=== PATIENT | female | born 1940 | race Caucasian/White ===

== ENCOUNTER → 2021-11-20 10:04 | Outpatient (CLI) | payer MEDICARE, SELFPAY ==
[2021-11-20 19:01] LABS: UR Morphine/Opiate cutoff 300 Negative (Negative); Ur Creatinine Normal (Normal); Ur Specific Gravity Normal (Normal); Urine Amphetamines Negative (Negative); Urine Barbiturates Negative (Negative); Urine Benzodiazepines Negative (Negative); Urine Cocaine Negative (Negative); Urine MDMA Negative (Negative); Urine Methadone Negative (Negative); Urine Methamphetamines Negative (Negative); Urine Oxycodone Negative (Negative); Urine Phencyclidine Negative (Negative); Urine Tetrahydrocannabinol Negative (Negative); Urine Tricyclic Antidepressant Positive (Negative); Urine pH Normal (Normal)
[2021-11-23 12:57] LABS: Ethyl Glucuronide Screen Negative ng/mL (Cutoff=500)
== END ==
PROVIDERS: PCP Physician Assistant Medical; Visit Provider Physician Assistant Medical
DX: G89.4 Chronic pain syndrome (principal); Z79.891 Long term (current) use of opiate analgesic
CPT/HCPCS: 80305; 80321

== ENCOUNTER → 2022-04-28 12:00 | Outpatient (CLI) | payer MEDICARE, SELFPAY ==
[2022-04-28 20:20] LABS: Vitamin B12 > 1000 pg/mL (239-931)
[2022-04-29 17:16] LABS: Vitamin D 25 Hydroxy (D3) 37.6 ng/mL (30.0-100.0)
== END ==
PROVIDERS: PCP Family Medicine; Visit Provider Family Medicine
DX: Z79.891 Long term (current) use of opiate analgesic (principal); E78.2 Mixed hyperlipidemia; F02.80 Dementia in other diseases classified elsewhere, unspecified severity, without behavioral disturbance, psychotic disturbance, mood disturbance, and anxiety; G30.9 Alzheimer's disease, unspecified; G89.29 Other chronic pain; M54.50 Low back pain, unspecified
CPT/HCPCS: 82306; 82607

== ENCOUNTER 2022-05-21 15:44 | Inpatient (IN) | payer MEDICARE, SELFPAY ==
[2022-05-21] VITALS (23 sets, daily range): BP systolic 149–190; BP diastolic 66–98; PULSE 81–149; RESP 12–20; TEMP 36.8; O2SAT 97–99
--- NOTE | 2022-05-21 15:54 | DI.RAD.S_ITS ---
PROCEDURE: XR CHEST 1V INDICATIONS: chest pain TECHNIQUE: One view of the chest was acquired. COMPARISON: None. FINDINGS: Surgical changes and devices: None. Lungs and pleura: Patchy opacities noted in the apex of the left lung. No pleural effusions or pneumothorax. Mediastinum: Mediastinal contours appear normal. Heart size is normal. Bones and chest wall: No suspicious bony lesions. Overlying soft tissues appear unremarkable. IMPRESSION: Patchy opacities in the apex of the left lung which could represent pneumonia or pleural-parenchymal scarring. Dictated by: Dary Carrasco MD, PhD on 05/21/2022 at 17:07 Approved by: Dary Carrasco MD, PhD on 05/21/2022 at 17:08
--- NOTE | 2022-05-21 15:55 | DI.RAD.S_ITS ---
PROCEDURE: XR KNEE LT 1TO2V INDICATIONS: fall TECHNIQUE: 2 views of the knee were acquired. COMPARISON: None. FINDINGS: Bones: No fractures or dislocations. No suspicious bony lesions. Mild to moderate tricompartment osteoarthritis. Soft tissues: No joint effusion. No suspicious soft tissue calcifications. IMPRESSION: No fracture. No acute osseous lesion. If symptoms and/or clinical suspicion for pathology persists, further assessment with repeat radiographs (7-10 days) or advanced imaging (e.g. CT, MRI or bone scan) should be considered. Dictated by: Dary Carrasco MD, PhD on 05/21/2022 at 17:05 Approved by: Dary Carrasco MD, PhD on 05/21/2022 at 17:05
--- NOTE | 2022-05-21 15:55 | DI.RAD.S_ITS ---
PROCEDURE: XR HIP W PEL IF DONE LT 2V INDICATIONS: fall TECHNIQUE: AP pelvis with lateral view(s) of the left hip(s). COMPARISON: None. FINDINGS: Bones: No fractures or dislocations. Pelvic ring appears intact. No suspicious bony lesions. Soft tissues: The visualized bowel gas pattern is normal. No suspicious soft tissue calcifications. IMPRESSION: No fracture. No acute osseous lesion. If symptoms and/or clinical suspicion for pathology persists, further assessment with repeat radiographs (7-10 days) or advanced imaging (e.g. CT, MRI or bone scan) should be considered. Dictated by: Dary Carrasco MD, PhD on 05/21/2022 at 17:06 Approved by: Dary Carrasco MD, PhD on 05/21/2022 at 17:07
[2022-05-21 16:25] LABS: Add Manual Diff / Slide Review NO; Basophils Absolute Auto 0 /uL (0-100); Basophils Percent Auto 0.1 % (0-2); Eosinophils Absolute Auto 0 /uL (0-450); Hematocrit 36.5 % (36-46); Lymphocytes Absolute Auto 1100 /uL (1100-4500); Lymphocytes Percent Auto 4.6 % (25-40); Mean Corpuscular HGB Conc 32.9 % (30-36); Mean Corpuscular Hemoglobin 30.9 PG (26-34); Monocytes Absolute Auto 1200 /uL (0-900); Monocytes Percent Auto 4.9 % (3-14); Neutrophils Absolute Auto 21800 /uL (1500-7000); Neutrophils Percent Auto 90.4 % (50-75); Platelet Count 488 X10^3/uL (150-400); Red Blood Cell Count 3.88 X10^6/uL (4.0-5.2); Red Cell Distribution Width 15.4 % (11.6-14.8); White Blood Cell Count 24.2 X10^3/uL (4.5-11.0)
--- NOTE | 2022-05-21 16:38 | DI.CT.S_ITS ---
PROCEDURE: CT CHEST ABD PEL W CON INDICATIONS: IV contrast only/Abdominal pain/weight loss TECHNIQUE: After the administration of oral and intravenous contrast, axial sections acquired from the supraclavicular neck to the pubic symphysis. Coronal and sagittal reformats were performed. For radiation dose reduction, the following was used: automated exposure control, adjustment of mA and/or kV according to patient size. COMPARISON:[facility], CR, XR HIP W PEL IF DONE LT 2V, 05/21/2022, 15:58. [facility], CR, XR KNEE LT 1TO2V, 05/21/2022, 15:58. [facility], CR, XR CHEST 1V, 05/21/2022, 15:58. [facility] ([place]), CR, XR LUMBAR SPINE 2-3V, 02/14/2022, 9:08. [facility], CT, CT HEAD/BRAIN WO CON, 05/21/2022, 17:10. [facility], CT, CT CERVICAL SPINE WO CON, 05/21/2022, 17:10. FINDINGS: Image quality: This evaluation is limited, secondary to the patient's inability to fully cooperate with the examination. CHEST: Lower Neck: No enlarged lymph nodes. Thyroid: Within normal limits. Axillae: No enlarged lymph nodes. Chest Wall: Unremarkable. Lungs and Airways: Emphysematous changes are seen, which are worst superiorly. Subpleural bleb formation can be seen. Pleura: No pneumothorax or pleural effusions. Heart: Heart size is normal. No pericardial effusion. There is at least moderate coronary artery calcification. Thoracic Vessels: The aorta and pulmonary arteries demonstrate normal size. Atherosclerotic calcification is noted. Mediastinum and Lauryn: No enlarged lymph nodes. Esophagus: There is wall thickening seen involving the distal esophagus. A likely hiatal hernia is present. ABDOMEN: Liver: Unremarkable. Gallbladder: Unremarkable. Biliary ducts: Unremarkable. Pancreas: The pancreas is atrophic. No pancreatic ductal dilatation is seen. Spleen: Unremarkable. Adrenal Glands: Generalized thickening can be seen of the adrenal glands, yet without focal adrenal nodules. Kidneys and Ureters: Unremarkable. Stomach and Bowel: Generalized moderate wall thickening can be seen involving the distal colon, including the sigmoid colon and the rectum. The more proximal colon demonstrates no significant abnormality. No dilated loops of small bowel are seen. No significant gastric abnormality is seen. Peritoneum: No abnormal intraperitoneal fluid. No free air. Ventral Wall: No hernia. Abdominal Nodes: No retroperitoneal or mesenteric adenopathy by size criteria. Vessels: Aorta and inferior vena cava are normal in size. Atherosclerotic calcification is noted. PELVIS: Pelvic Organs: Unremarkable. Bladder: Unremarkable. Pelvic Nodes: No enlarged lymph nodes. Miscellaneous: No inguinal hernias are seen. Bones: A T12 fracture is again seen, with a subacute appearance. There is posterior displacement of fracture fragments of 7 mm. Grade 1 L4-L5 anterolisthesis can be seen, without associated pars defects. IMPRESSION: Wall thickening is seen involving the distal esophagus. Please consider reflux disease versus neoplasm. If clinically appropriate, please consider upper endoscopy for further evaluation. Moderate distal colonic wall thickening can be seen. Please correlate with potential infectious and inflammatory causes of colitis. No findings of perforation or abscess can be seen. Emphysematous changes are seen. A T12 fracture is again seen, as previously demonstrated by plain film. Posterior displacement of free Becher fragments can be seen. Incidental note is made of: At least moderate coronary artery calcification Grade 1 L4-5 anterolisthesis Dictated by: Ivan Unger M.D. on 05/21/2022 at 18:01 Approved by: Ivan Unger M.D. on 05/21/2022 at 18:07
--- NOTE | 2022-05-21 16:40 | ED_ITS ---
HPI - Fall <Nael Arreola MD - Last Filed: 05/27/22 06:14> General Chief Complaint: Fall Stated Complaint: Not eating, fatigued, fall Time Seen by Provider: 05/21/22 16:02 Source: patient and family Mode of arrival: Wheelchair History of Present Illness HPI Narrative: Patient brought here by daughter. Patient was at primary care office for 1st visit today. Has had generalized weakness failure to thrive, decreased oral intake no appetite. 30 lb weight loss since December of this year. Patient is on pain medication for chronic pain. From previous provider, had a new provider visit to day. Please see notes below. Patient had unwitnessed falls. She denies any pain at this time from head to toe. Patient is cooperative. She only shakes her head yes and no to questions. Daughter at bedside. Patient l philip with another daughter. No nausea vomiting diarrhea. Denies any black or bloody stools. Has had decreased urine output. HPI Chief Complaint Chief Complaint: lack of appetite HPI Details: Patient, new to me, hx alzheimer's, chronic back pain w/ mcc opioid use, irritable bladder, lower extremity weakness, multiple falls here for same day consult w/ daughter and son reporting two days with worsening weakness, fatigue, anorexia and nausea. They also think she may have fallen twice last night getting up to go to the bathroom and may have hit her head. ? She has not eaten for two days, symptoms started before the fall. She has not had any vomiting, diarrhea or urinary complaints. She has been on mcc opioid therapy for lifelong chronic pain and has recently been tapered slightly with trial lyrica. They do not want to be flown off [place] as they do not have air lift insurance. She appears to have 30 lb weight loss since December. Plan Weak and ill appearing With 30 lb weight loss since December there is concern for malignancy, recent labs did not include pending orders and per lab she was due for fasting draw f/u soon at which time previously ordered labs were to be drawn Given lack of food intake x 48 hrs and appearance of patient, I advised need to call for EMS/air lift transport/ IV hydration but patient and family declined d/t lack of insurance Daughter requested ferry priority load which was provided After patient left, I confirmed she could qualify for airlift insurance immediately. Daughter was informed 5 minutes after leaving that they should head to [facility], request IV and transport and she agreed to do so.. Related Data Previous Rx's Medication Instructions Recorded donepezil 5 mg tablet (Aricept) 5 mg PO DAILY #30 tabs 05/23/22 lidocaine 5 % topical patch 1 patch topical Q24H #15 ea 05/23/22 lidocaine 5 % topical patch See Rx Instructions .Route 05/23/22 .COMPLEX #15 patches lorazepam 0.5 mg tablet 0.5 mg PO Q4HR PRN anxiety #30 tabs 05/23/22 oxycodone-acetaminophen 10 mg-325 1 tab PO Q4HR PRN Pain, Moderate 05/23/22 mg tablet (4-6) #60 tabs oxycodone-acetaminophen 10 mg-325 See Rx Instructions .Route 05/23/22 mg tablet .COMPLEX pain #30 tabs pregabalin 25 mg capsule (Lyrica) 25 mg PO BEDTIME #30 caps 05/23/22 pregabalin 25 mg capsule (Lyrica) 25 mg PO BEDTIME #30 caps 05/23/22 Allergies Allergy/AdvReac Type Severity Reaction Status Date / Time No Known Drug Allergies Allergy Verified 05/21/22 12:59 Review of Systems <Nael Arreola MD - Last Filed: 05/27/22 06:14> Review of Systems Narrative: GENERAL: Denies chills, positive for fatigue, malaise, negative for fever, sweats. Positive for unexpected weight loss HEENT: Denies sinus pain, ear pain, sore throat RESPIRATORY: Denies dyspnea, cough CARDIOVASCULAR: Denies chest pain, palpitations GASTROINTESTINAL: Denies nausea, vomiting, abdominal pain : Denies dysuria, frequency, hematuria MUSCULOSKELETAL: denies muscle or bony pain SKIN: Denies rash, skin lesions NEUROLOGIC: Denies weakness, numbness ROS Unobtainable: All systems reviewed & are unremarkable except as noted in HPI and below Patient History <Nael Arreola MD - Last Filed: 05/27/22 06:14> Medical History Alzheimer's dementia Chronic low back pain Hyperlipidemia Irritable bladder extermination supervisor prescription opiate use Social History household members: family Smoking Status: Former smoker alcohol intake: current Smoking Status: Former smoker Exam <Nael Arreola MD - Last Filed: 05/27/22 06:14> Narrative Exam Narrative: GENERAL: in no distress, not toxic not dyspneic, emaciated appearing HEAD: Normocephalic. Nontender scalp and face. EYES: Pupils equal round No scleral icterus. ENT: Mucous membranes moist. NECK: Trachea midline. No midline tenderness or step-off. CARDIOVASCULAR: Regular rate and rhythm without murmurs, tachycardic RESPIRATORY: Clear to auscultation. Breath sounds equal bilaterally. No wheezes, rales, or rhonchi. GASTROINTESTINAL: Abdomen soft, non-tender EXTREMITIES: No gross deformities. Nontender bilateral shoulders elbows wrists pelvis hips knees and ankles. BACK: No flank tenderness. No midline tenderness or step-off. NEURO: Patient awake and alert. Following commands. SKIN: Warm and dry PSYCH: Not anxious, is cooperative Initial Vital Signs Initial Vital Signs: Vital Signs Temperature 98.3 F 05/21/22 15:48 Pulse Rate 119 H 05/21/22 15:48 Respiratory Rate 20 05/21/22 15:48 Blood Pressure 160/66 H 05/21/22 15:48 Pulse Oximetry 99 05/21/22 15:48 Oxygen Delivery Method 05/21/22 15:48 <Ney Gibbs DO - Last Filed: 05/22/22 06:02> Initial Vital Signs Initial Vital Signs: Vital Signs Temperature 98.3 F 05/21/22 15:48 Pulse Rate 119 H 05/21/22 15:48 Respiratory Rate 20 05/21/22 15:48 Blood Pressure 160/66 H 05/21/22 15:48 Pulse Oximetry 99 05/21/22 15:48 Oxygen Delivery Method 05/21/22 15:48 Course <Nael Arreola MD - Last Filed: 05/27/22 06:14> Course Course Narrative: No new issues during course of stay Sign-out to Dr. Gibbs patient will need to be admitted for failure to thrive. Troponin likely due to tachycardia/cardiac demand. Patient denies any any chest pain or back pain or abdominal pain. Imaging results are pending. White cell count nonspecific other than possible neoplastic or infectious. Urinalysis and imaging are pending results Decision to Admit Date: 05/21/22 Decision to Admit time: 16:47 Orders Ordered: Discontinued Medications Acetaminophen (Acetaminophen 325 Mg Tablet) 650 mg PO Q6HR PRN PRN Reason: Fever/Mild Pain (1-3) Aspirin (Aspirin Ec 325 Mg Tablet) 325 mg PO DAILY [facility] Last Admin: 05/23/22 09:43 Dose: 325 mg Documented By: Admin: 05/22/22 09:06 Dose: 325 mg Documented By: DEREK Atorvastatin Calcium (Atorvastatin 20 Mg Tablet) 10 mg PO DAILY [facility] Last Admin: 05/23/22 09:42 Dose: 10 mg Documented By: Admin: 05/22/22 09:05 Dose: 10 mg Documented By: DEREK Docusate Sodium (Docusate 100 Mg Capsule) 100 mg PO BID [facility] Last Admin: 05/23/22 09:42 Dose: 100 mg Documented By: Admin: 05/22/22 20:12 Dose: 100 mg Documented By: Admin: 05/22/22 09:06 Dose: 100 mg Documented By: Admin: 05/21/22 22:33 Dose: 100 mg Documented By: SONIA Donepezil HCl (Donepezil 5 Mg Tablet) 5 mg PO DAILY [facility] Last Admin: 05/23/22 09:41 Dose: 5 mg Documented By: Admin: 05/22/22 09:13 Dose: 5 mg Documented By: DEREK Enoxaparin Sodium (Enoxaparin 30 Mg/0.3 Ml Syringe) 30 mg SUBCUT DAILY [facility] Last Admin: 05/23/22 09:43 Dose: 30 mg Documented By: Admin: 05/22/22 09:06 Dose: 30 mg Documented By: DEREK Sodium Chloride (Normal Saline 0.9%) 1,000 mls @ 1,000 mls/hr IV BOLUS ONE Stop: 05/21/22 17:37 Last Infusion: 05/21/22 19:59 Dose: 0 mls/hr Documented By: Admin: 05/21/22 16:46 Dose: 1,000 mls/hr Documented By: TREVOR Sodium Chloride (Normal Saline 0.9%) 1,000 mls @ 1,000 mls/hr IV BOLUS ONE Stop: 05/21/22 18:51 Last Infusion: 05/21/22 23:35 Dose: 0 mls/hr Documented By: Admin: 05/21/22 20:17 Dose: 1,000 mls/hr Documented By: TREVOR Sodium Chloride (Normal Saline 0.9%) 1,000 mls @ 100 mls/hr IV CONT [facility] Last Infusion: 05/23/22 00:37 Dose: 0 mls/hr Documented By: Admin: 05/22/22 16:04 Dose: 100 mls/hr Documented By: Infusion: 05/22/22 07:58 Dose: 100 mls/hr Documented By: Admin: 05/21/22 21:58 Dose: 100 mls/hr Documented By: NR POTASSIUM CHLORIDE IN WATER (Potassium Cl 10 Meq/100 Ml Do) 10 meq in 100 mls @ 100 mls/hr IV Q1H [facility] Stop: 05/22/22 02:44 Last Infusion: 05/22/22 05:41 Dose: 0 mls/hr Documented By: Admin: 05/22/22 04:34 Dose: 100 mls/hr Documented By: Infusion: 05/22/22 04:23 Dose: 0 mls/hr Documented By: Admin: 05/22/22 03:13 Dose: 100 mls/hr Documented By: Infusion: 05/22/22 02:52 Dose: 100 mls/hr Documented By: Admin: 05/22/22 01:52 Dose: 100 mls/hr Documented By: Infusion: 05/22/22 01:40 Dose: 100 mls/hr Documented By: Admin: 05/22/22 00:40 Dose: 100 mls/hr Documented By: Infusion: 05/22/22 00:34 Dose: 100 mls/hr Documented By: Admin: 05/21/22 23:34 Dose: 100 mls/hr Documented By: Infusion: 05/21/22 23:01 Dose: 100 mls/hr Documented By: Admin: 05/21/22 22:01 Dose: 100 mls/hr Documented By: SONIA POTASSIUM CHLORIDE IN WATER (Potassium Cl 10 Meq/100 Ml Do) 10 meq in 100 mls @ 100 mls/hr IV Q1H [facility] Stop: 05/22/22 05:29 Last Admin: 05/22/22 05:25 Dose: Not Given Documented By: POLO Ceftriaxone Sodium 1,000 mg/ (Sodium Chloride) 100 mls @ 200 mls/hr IV Q24H [facility] Stop: 05/26/22 08:29 Last Infusion: 05/23/22 09:29 Dose: 0 mls/hr Documented By: Admin: 05/23/22 07:33 Dose: 200 mls/hr Documented By: Infusion: 05/22/22 11:45 Dose: 0 mls/hr Documented By: Admin: 05/22/22 09:05 Dose: 200 mls/hr Documented By: DEREK Azithromycin 500 mg/ Dextrose 250 mls @ 250 mls/hr IV Q24H [facility] Stop: 05/25/22 08:59 Last Infusion: 05/23/22 14:36 Dose: 0 mls/hr Documented By: Admin: 05/23/22 09:27 Dose: 150 mls/hr Documented By: Infusion: 05/22/22 11:45 Dose: 0 mls/hr Documented By: Admin: 05/22/22 09:13 Dose: 250 mls/hr Documented By: DEREK Vancomycin HCl (Vancomycin) 1,000 mg in 200 mls @ 200 mls/hr IV Q18H [facility] Last Infusion: 05/23/22 14:36 Dose: 0 mls/hr Documented By: Admin: 05/23/22 11:34 Dose: 200 mls/hr Documented By: REYNALDO Lidocaine (Lidocaine Patch 1 Each Adh..Patch) 1 each TOP DAILY PRN PRN Reason: Pain, Moderate (4-6) Last Admin: 05/22/22 19:58 Dose: 1 each Documented By: EMBER Lidocaine (Remove Lidocaine Patch) 1 each TOP BEDTIME [facility] Last Admin: 05/22/22 20:13 Dose: Not Given Documented By: EMBER Lorazepam (Lorazepam 0.5 Mg Tablet) 0.5 mg PO Q4HR PRN PRN Reason: Agitation Magnesium Chloride (Magnesium Chloride 64 Mg Tablet) 128 mg PO NOW ONE Stop: 05/22/22 13:16 Last Admin: 05/22/22 13:36 Dose: 128 mg Documented By: GLENIS Magnesium Chloride (Magnesium Chloride 64 Mg Tablet) 128 mg PO NOW ONE Stop: 05/23/22 09:20 Last Admin: 05/23/22 09:41 Dose: 128 mg Documented By: REYNALDO Metoprolol Tartrate (Metoprolol Tartrate 5 Mg/5 Ml Inj) 5 mg IV Q5M [facility] Stop: 05/21/22 21:11 Last Admin: 05/22/22 04:24 Dose: Not Given Documented By: Admin: 05/22/22 04:24 Dose: Not Given Documented By: Admin: 05/21/22 22:06 Dose: 5 mg Documented By: SONIA Morphine Sulfate (Morphine 2 Mg/Ml Inj) 2 mg IV Q5MIN PRN PRN Reason: Chest Pain Last Admin: 05/22/22 09:53 Dose: 2 mg Documented By: DEREK Nitroglycerin (Nitroglycerin 0.4 Mg Sl Tab) 0.4 mg SL [id number] PRN PRN Reason: Chest Pain Ondansetron HCl (Ondansetron 4 Mg/2 Ml Inj) 4 mg IV Q4HR PRN PRN Reason: Nausea And Vomiting Ondansetron HCl (Ondansetron 4 Mg Odt) 4 mg SL Q6HR PRN PRN Reason: Nausea Oxycodone HCl (Oxycodone Ir 5 Mg Tablet) 5 mg PO Q6HR PRN PRN Reason: Pain, Severe (7-10) Oxycodone/Acetaminophen (Oxycodone/Acetaminophen 5/325 Tablet) 1 tab PO Q6HR PRN PRN Reason: Pain, Severe (7-10) Oxycodone/Acetaminophen (Oxycodone/Acetaminophen 5/325 Tablet) 1 tab PO Q4HR PRN PRN Reason: Pain, Moderate (4-6) Oxycodone/Acetaminophen (Oxycodone/Acetaminophen 5/325 Tablet) 1 tab PO Q4HR PRN PRN Reason: Pain, Moderate (4-6) Last Admin: 05/23/22 16:24 Dose: 1 tab Documented By: Admin: 05/23/22 06:39 Dose: 1 tab Documented By: Admin: 05/22/22 22:47 Dose: 1 tab Documented By: Admin: 05/22/22 18:19 Dose: 1 tab Documented By: Admin: 05/21/22 23:10 Dose: 1 tab Documented By: SONIA Potassium Chloride (Potassium Chloride 20 Meq Tab) 40 meq PO NOW ONE Stop: 05/23/22 09:20 Last Admin: 05/23/22 09:41 Dose: 40 meq Documented By: REYNALDO Pregabalin (Pregabalin 25 Mg Capsule) 25 mg PO BEDTIME [facility] Last Admin: 05/22/22 20:12 Dose: 25 mg Documented By: Admin: 05/21/22 23:10 Dose: 25 mg Documented By: SONIA Sennosides (Sennosides 8.6 Mg Tablet) 17.2 mg PO BEDTIME [facility] Last Admin: 05/22/22 20:12 Dose: 17.2 mg Documented By: Admin: 05/21/22 22:33 Dose: 17.2 mg Documented By: SONIA Vancomycin HCl (Vancomycin Per Pharmacy) 1 request MISC NOW ONE Stop: 05/23/22 08:29 Last Admin: 05/23/22 10:51 Dose: Not Given Documented By: REYNALDO Vancomycin HCl (Vancomycin Trough) 1 request MISC NOW ONE Stop: 05/25/22 16:31 Vancomycin HCl (Vancomycin Peak) 1 request MISC NOW ONE Stop: 05/25/22 19:01 Reevaluation(s) Reevaluation #1: Reviewed results with family. They do agree for admit Time: 19:26 Consultations Consultation #1: Spoke with Dr. Lopez cardiology, may need echocardiogram but no stress test.. Troponin likely due to cardiac demand and heart rate. Time: 18:15 Consultation #2: Spoke with hospitalist, Annika Gomes, she will admit patient. Pending discussion with General surgery regarding endoscopy Time: 19:26 Vital Signs Vital signs: Vital Signs - 8 hr 05/21/22 15:48 05/21/22 16:42 05/21/22 16:43 Temperature 98.3 F Pulse Rate 119 H 149 H 136 H Respiratory Rate 20 17 17 Blood Pressure 160/66 H Pulse Oximetry 99 98 98 Oxygen Delivery Method Room Air 05/21/22 16:43 05/21/22 17:00 05/21/22 17:00 Temperature Pulse Rate 149 H Respiratory Rate 17 Blood Pressure 150/74 H 170/94 H Pulse Oximetry Oxygen Delivery Method 05/21/22 17:31 05/21/22 17:52 05/21/22 17:52 Temperature Pulse Rate 126 H 126 H Respiratory Rate 12 Blood Pressure 183/81 H Pulse Oximetry 98 Oxygen Delivery Method 05/21/22 18:00 05/21/22 18:00 05/21/22 18:30 Temperature Pulse Rate 125 H 147 H Respiratory Rate 14 15 Blood Pressure 190/86 H Pulse Oximetry 97 98 Oxygen Delivery Method 05/21/22 19:00 05/21/22 19:00 Temperature Pulse Rate 120 H Respiratory Rate 12 Blood Pressure 149/83 H Pulse Oximetry Oxygen Delivery Method <Ney Gibbs DO - Last Filed: 05/22/22 06:02> Orders Ordered: Discontinued Medications Acetaminophen (Acetaminophen 325 Mg Tablet) 650 mg PO Q6HR PRN PRN Reason: Fever/Mild Pain (1-3) Aspirin (Aspirin Ec 325 Mg Tablet) 325 mg PO DAILY [facility] Last Admin: 05/23/22 09:43 Dose: 325 mg Documented By: Admin: 05/22/22 09:06 Dose: 325 mg Documented By: DEREK Atorvastatin Calcium (Atorvastatin 20 Mg Tablet) 10 mg PO DAILY [facility] Last Admin: 05/23/22 09:42 Dose: 10 mg Documented By: Admin: 05/22/22 09:05 Dose: 10 mg Documented By: DEREK Docusate Sodium (Docusate 100 Mg Capsule) 100 mg PO BID [facility] Last Admin: 05/23/22 09:42 Dose: 100 mg Documented By: Admin: 05/22/22 20:12 Dose: 100 mg Documented By: Admin: 05/22/22 09:06 Dose: 100 mg Documented By: Admin: 05/21/22 22:33 Dose: 100 mg Documented By: SONIA Donepezil HCl (Donepezil 5 Mg Tablet) 5 mg PO DAILY [facility] Last Admin: 05/23/22 09:41 Dose: 5 mg Documented By: Admin: 05/22/22 09:13 Dose: 5 mg Documented By: DEREK Enoxaparin Sodium (Enoxaparin 30 Mg/0.3 Ml Syringe) 30 mg SUBCUT DAILY [facility] Last Admin: 05/23/22 09:43 Dose: 30 mg Documented By: Admin: 05/22/22 09:06 Dose: 30 mg Documented By: DEREK Sodium Chloride (Normal Saline 0.9%) 1,000 mls @ 1,000 mls/hr IV BOLUS ONE Stop: 05/21/22 17:37 Last Infusion: 05/21/22 19:59 Dose: 0 mls/hr Documented By: Admin: 05/21/22 16:46 Dose: 1,000 mls/hr Documented By: TREVOR Sodium Chloride (Normal Saline 0.9%) 1,000 mls @ 1,000 mls/hr IV BOLUS ONE Stop: 05/21/22 18:51 Last Infusion: 05/21/22 23:35 Dose: 0 mls/hr Documented By: Admin: 05/21/22 20:17 Dose: 1,000 mls/hr Documented By: AMU Sodium Chloride (Normal Saline 0.9%) 1,000 mls @ 100 mls/hr IV CONT MOSHE Last Infusion: 05/23/22 00:37 Dose: 0 mls/hr Documented By: Admin: 05/22/22 16:04 Dose: 100 mls/hr Documented By: Infusion: 05/22/22 07:58 Dose: 100 mls/hr Documented By: Admin: 05/21/22 21:58 Dose: 100 mls/hr Documented By: SONIA POTASSIUM CHLORIDE IN WATER (Potassium Cl 10 Meq/100 Ml Do) 10 meq in 100 mls @ 100 mls/hr IV Q1H [facility] Stop: 05/22/22 02:44 Last Infusion: 05/22/22 05:41 Dose: 0 mls/hr Documented By: Admin: 05/22/22 04:34 Dose: 100 mls/hr Documented By: Infusion: 05/22/22 04:23 Dose: 0 mls/hr Documented By: Admin: 05/22/22 03:13 Dose: 100 mls/hr Documented By: Infusion: 05/22/22 02:52 Dose: 100 mls/hr Documented By: Admin: 05/22/22 01:52 Dose: 100 mls/hr Documented By: Infusion: 05/22/22 01:40 Dose: 100 mls/hr Documented By: Admin: 05/22/22 00:40 Dose: 100 mls/hr Documented By: Infusion: 05/22/22 00:34 Dose: 100 mls/hr Documented By: Admin: 05/21/22 23:34 Dose: 100 mls/hr Documented By: Infusion: 05/21/22 23:01 Dose: 100 mls/hr Documented By: Admin: 05/21/22 22:01 Dose: 100 mls/hr Documented By: SONIA POTASSIUM CHLORIDE IN WATER (Potassium Cl 10 Meq/100 Ml Do) 10 meq in 100 mls @ 100 mls/hr IV Q1H [facility] Stop: 05/22/22 05:29 Last Admin: 05/22/22 05:25 Dose: Not Given Documented By: POLO Ceftriaxone Sodium 1,000 mg/ (Sodium Chloride) 100 mls @ 200 mls/hr IV Q24H [facility] Stop: 05/26/22 08:29 Last Infusion: 05/23/22 09:29 Dose: 0 mls/hr Documented By: Admin: 05/23/22 07:33 Dose: 200 mls/hr Documented By: Infusion: 05/22/22 11:45 Dose: 0 mls/hr Documented By: Admin: 05/22/22 09:05 Dose: 200 mls/hr Documented By: DEREK Azithromycin 500 mg/ Dextrose 250 mls @ 250 mls/hr IV Q24H [facility] Stop: 05/25/22 08:59 Last Infusion: 05/23/22 14:36 Dose: 0 mls/hr Documented By: Admin: 05/23/22 09:27 Dose: 150 mls/hr Documented By: Infusion: 05/22/22 11:45 Dose: 0 mls/hr Documented By: Admin: 05/22/22 09:13 Dose: 250 mls/hr Documented By: DEREK Vancomycin HCl (Vancomycin) 1,000 mg in 200 mls @ 200 mls/hr IV Q18H [facility] Last Infusion: 05/23/22 14:36 Dose: 0 mls/hr Documented By: Admin: 05/23/22 11:34 Dose: 200 mls/hr Documented By: REYNALDO Lidocaine (Lidocaine Patch 1 Each Adh..Patch) 1 each TOP DAILY PRN PRN Reason: Pain, Moderate (4-6) Last Admin: 05/22/22 19:58 Dose: 1 each Documented By: EMBER Lidocaine (Remove Lidocaine Patch) 1 each TOP BEDTIME [facility] Last Admin: 05/22/22 20:13 Dose: Not Given Documented By: EMBER Lorazepam (Lorazepam 0.5 Mg Tablet) 0.5 mg PO Q4HR PRN PRN Reason: Agitation Magnesium Chloride (Magnesium Chloride 64 Mg Tablet) 128 mg PO NOW ONE Stop: 05/22/22 13:16 Last Admin: 05/22/22 13:36 Dose: 128 mg Documented By: GLENIS Magnesium Chloride (Magnesium Chloride 64 Mg Tablet) 128 mg PO NOW ONE Stop: 05/23/22 09:20 Last Admin: 05/23/22 09:41 Dose: 128 mg Documented By: REYNALDO Metoprolol Tartrate (Metoprolol Tartrate 5 Mg/5 Ml Inj) 5 mg IV Q5M [facility] Stop: 05/21/22 21:11 Last Admin: 05/22/22 04:24 Dose: Not Given Documented By: Admin: 05/22/22 04:24 Dose: Not Given Documented By: Admin: 05/21/22 22:06 Dose: 5 mg Documented By: SONIA Morphine Sulfate (Morphine 2 Mg/Ml Inj) 2 mg IV Q5MIN PRN PRN Reason: Chest Pain Last Admin: 05/22/22 09:53 Dose: 2 mg Documented By: DEREK Nitroglycerin (Nitroglycerin 0.4 Mg Sl Tab) 0.4 mg SL [id number] PRN PRN Reason: Chest Pain Ondansetron HCl (Ondansetron 4 Mg/2 Ml Inj) 4 mg IV Q4HR PRN PRN Reason: Nausea And Vomiting Ondansetron HCl (Ondansetron 4 Mg Odt) 4 mg SL Q6HR PRN PRN Reason: Nausea Oxycodone HCl (Oxycodone Ir 5 Mg Tablet) 5 mg PO Q6HR PRN PRN Reason: Pain, Severe (7-10) Oxycodone/Acetaminophen (Oxycodone/Acetaminophen 5/325 Tablet) 1 tab PO Q6HR PRN PRN Reason: Pain, Severe (7-10) Oxycodone/Acetaminophen (Oxycodone/Acetaminophen 5/325 Tablet) 1 tab PO Q4HR PRN PRN Reason: Pain, Moderate (4-6) Oxycodone/Acetaminophen (Oxycodone/Acetaminophen 5/325 Tablet) 1 tab PO Q4HR PRN PRN Reason: Pain, Moderate (4-6) Last Admin: 05/23/22 16:24 Dose: 1 tab Documented By: Admin: 05/23/22 06:39 Dose: 1 tab Documented By: Admin: 05/22/22 22:47 Dose: 1 tab Documented By: Admin: 05/22/22 18:19 Dose: 1 tab Documented By: Admin: 05/21/22 23:10 Dose: 1 tab Documented By: SONIA Potassium Chloride (Potassium Chloride 20 Meq Tab) 40 meq PO NOW ONE Stop: 05/23/22 09:20 Last Admin: 05/23/22 09:41 Dose: 40 meq Documented By: REYNALDO Pregabalin (Pregabalin 25 Mg Capsule) 25 mg PO BEDTIME [facility] Last Admin: 05/22/22 20:12 Dose: 25 mg Documented By: Admin: 05/21/22 23:10 Dose: 25 mg Documented By: SONIA Sennosides (Sennosides 8.6 Mg Tablet) 17.2 mg PO BEDTIME [facility] Last Admin: 05/22/22 20:12 Dose: 17.2 mg Documented By: Admin: 05/21/22 22:33 Dose: 17.2 mg Documented By: SONIA Vancomycin HCl (Vancomycin Per Pharmacy) 1 request MISC NOW ONE Stop: 05/23/22 08:29 Last Admin: 05/23/22 10:51 Dose: Not Given Documented By: REYNALDO Vancomycin HCl (Vancomycin Trough) 1 request MISC NOW ONE Stop: 05/25/22 16:31 Vancomycin HCl (Vancomycin Peak) 1 request MISC NOW ONE Stop: 05/25/22 19:01 Vital Signs Vital signs: Vital Signs - 8 hr 05/21/22 15:48 05/21/22 16:42 05/21/22 16:43 Temperature 98.3 F Pulse Rate 119 H 149 H 136 H Respiratory Rate 20 17 17 Blood Pressure 160/66 H Pulse Oximetry 99 98 98 Oxygen Delivery Method Room Air 05/21/22 16:43 05/21/22 17:00 05/21/22 17:00 Temperature Pulse Rate 149 H Respiratory Rate 17 Blood Pressure 150/74 H 170/94 H Pulse Oximetry Oxygen Delivery Method 05/21/22 17:31 05/21/22 17:52 05/21/22 17:52 Temperature Pulse Rate 126 H 126 H Respiratory Rate 12 Blood Pressure 183/81 H Pulse Oximetry 98 Oxygen Delivery Method 05/21/22 18:00 05/21/22 18:00 05/21/22 18:30 Temperature Pulse Rate 125 H 147 H Respiratory Rate 14 15 Blood Pressure 190/86 H Pulse Oximetry 97 98 Oxygen Delivery Method 05/21/22 19:00 05/21/22 19:00 Temperature Pulse Rate 120 H Respiratory Rate 12 Blood Pressure 149/83 H Pulse Oximetry Oxygen Delivery Method MDM - Fall <Nael Arreola MD - Last Filed: 05/27/22 06:14> Differential Diagnosis Differential diagnosis: Likely other (Failure to thrive/dehydration/malignancy/UTI/pneumonia/viral syndrome) Lab Data Result diagrams: 05/23/22 05:49 05/23/22 05:49 Labs: Lab Results 05/21/22 05/21/22 05/21/22 Range/Units 16:15 16:15 16:50 WBC 24.2 H (4.5-11.0) X10^3/uL RBC 3.88 L (4.0-5.2) X10^6/uL Hgb 12.0 (12.0-16.0) g/dL Hct 36.5 (36-46) % MCV 94.0 (80-100) fL MCH 30.9 (26-34) PG MCHC 32.9 (30-36) % RDW 15.4 H (11.6-14.8) % Plt Count 488 H (150-400) X10^3/uL Neut % (Auto) 90.4 H (50-75) % Lymph % (Auto) 4.6 L (25-40) % Villalba % (Auto) 4.9 (3-14) % Eos % (Auto) 0.0 L (2-4) % Baso % (Auto) 0.1 (0-2) % Neut # (Auto) 14007 H (9188-0966) /uL Lymph # (Auto) 1100 (5313-2982) /uL Villalba # (Auto) 1200 H (0-900) /uL Eos # (Auto) 0 (0-450) /uL Baso # (Auto) 0 (0-100) /uL Sodium 133 L (137-145) mmol/L Potassium 2.9 L (3.4-5.1) mmol/L Chloride 102 (98-107) mmol/L Carbon Dioxide 19 L (22-32) mmol/L BUN 38 H (7-17) mg/dL Creatinine 1.01 (0.52-1.04) mg/dL Estimated GFR 55 L (>60) mL/min BUN/Creatinine Ratio 37.6 H (6-22) Glucose 138 H (80-110) mg/dL Calcium 8.3 L (8.4-10.2) mg/dL Magnesium 1.8 (1.6-2.3) mg/dL Total Bilirubin 0.3 (0.2-1.3) mg/dL AST 31 (14-36) IU/L ALT 15 (<35) IU/L Alkaline Phosphatase 85 (38-126) U/L Total Creatine Kinase 141 H (30-135) U/L CK-MB (CK-2) 3.11 H (<2.37) ng/mL CK-MB (CK-2) Rel Index 2.2 (1.5-5.0) % Troponin I 0.043 H (0.01-0.034) ng/mL Total Protein 6.6 (6.3-8.2) g/dL Albumin 3.6 (3.5-5.0) g/dL Globulin 3.0 (1.7-4.1) g/dL Albumin/Globulin Ratio 1.2 (1.0-2.8) Lipase 72 (23-300) U/L Urine Color Yellow Urine Appearance Slightly cloudy Urine pH 5.5 (4.5-8.0) Ur Specific [place] 1.015 (1.000-1.035) Urine Protein 1+ H (Negative) Urine Glucose (UA) Negative (Negative) g/dL Urine Ketones Negative (NEGATIVE) Urine Occult Blood Trace-intact (Negative) Urine Nitrate Negative (Negative) Urine Bilirubin Negative (NEGATIVE) Urine Urobilinogen 0.2 (0.2) E.U./dL Ur Leukocyte Esterase 1+ H (NEGATIVE) Urine RBC 0-1/hpf (0-5/HPF) Urine WBC 1-5/hpf (0-5/HPF) Ur Squamous Epith Cells 1-5 /hpf (0-5/HPF) Urine Bacteria Occasional (0-1) (None) Ur Culture Indicated? Specimen cultured Chlamy pneumoniae PCR (Not Detect) Adenovirus (PCR) (Not Detect) B. pertussis DNA (PCR) (Not Detecte) B.parapertussis DNA PCR (Not Detecte) Coronavirus OC43 (PCR) (Not Detect) Coronavirus HKU1 (PCR) (Not Detect) Coronavirus 229E (PCR) (Not Detect) SARS-CoV-2 (PCR) (Not Detecte) Coronavirus NL63 (PCR) (Not Detect) Human Metapneumovir PCR (Not Detect) Influenza Type A (PCR) (Not Detect) Influenza Type B (PCR) (Not Detect) M. pneumoniae (PCR) (Not Detect) Parainfluenza 1 (PCR) (Not Detect) Parainfluenza 2 (PCR) (Not Detect) Parainfluenza 3 (PCR) (Not Detect) Parainfluenza 4 (PCR) (Not Detect) RSV (PCR) (Not Detect) Entero/Rhino (PCR) (Not Detect) 05/21/22 Range/Units 17:00 WBC (4.5-11.0) X10^3/uL RBC (4.0-5.2) X10^6/uL Hgb (12.0-16.0) g/dL Hct (36-46) % MCV (80-100) fL MCH (26-34) PG MCHC (30-36) % RDW (11.6-14.8) % Plt Count (150-400) X10^3/uL Neut % (Auto) (50-75) % Lymph % (Auto) (25-40) % Villalba % (Auto) (3-14) % Eos % (Auto) (2-4) % Baso % (Auto) (0-2) % Neut # (Auto) (7814-2798) /uL Lymph # (Auto) (9832-0530) /uL Villalba # (Auto) (0-900) /uL Eos # (Auto) (0-450) /uL Baso # (Auto) (0-100) /uL Sodium (137-145) mmol/L Potassium (3.4-5.1) mmol/L Chloride (98-107) mmol/L Carbon Dioxide (22-32) mmol/L BUN (7-17) mg/dL Creatinine (0.52-1.04) mg/dL Estimated GFR (>60) mL/min BUN/Creatinine Ratio (6-22) Glucose (80-110) mg/dL Calcium (8.4-10.2) mg/dL Magnesium (1.6-2.3) mg/dL Total Bilirubin (0.2-1.3) mg/dL AST (14-36) IU/L ALT (<35) IU/L Alkaline Phosphatase (38-126) U/L Total Creatine Kinase (30-135) U/L CK-MB (CK-2) (<2.37) ng/mL CK-MB (CK-2) Rel Index (1.5-5.0) % Troponin I (0.01-0.034) ng/mL Total Protein (6.3-8.2) g/dL Albumin (3.5-5.0) g/dL Globulin (1.7-4.1) g/dL Albumin/Globulin Ratio (1.0-2.8) Lipase (23-300) U/L Urine Color Urine Appearance Urine pH (4.5-8.0) Ur Specific Zoar (1.000-1.035) Urine Protein (Negative) Urine Glucose (UA) (Negative) g/dL Urine Ketones (NEGATIVE) Urine Occult Blood (Negative) Urine Nitrate (Negative) Urine Bilirubin (NEGATIVE) Urine Urobilinogen (0.2) E.U./dL Ur Leukocyte Esterase (NEGATIVE) Urine RBC (0-5/HPF) Urine WBC (0-5/HPF) Ur Squamous Epith Cells (0-5/HPF) Urine Bacteria (None) Ur Culture Indicated? Chlamy pneumoniae PCR Not detected (Not Detect) Adenovirus (PCR) Not detected (Not Detect) B. pertussis DNA (PCR) Not detected (Not Detecte) B.parapertussis DNA PCR Not detected (Not Detecte) Coronavirus OC43 (PCR) Not detected (Not Detect) Coronavirus HKU1 (PCR) Not detected (Not Detect) Coronavirus 229E (PCR) Not detected (Not Detect) SARS-CoV-2 (PCR) Not detected (Not Detecte) Coronavirus NL63 (PCR) Not detected (Not Detect) Human Metapneumovir PCR Not detected (Not Detect) Influenza Type A (PCR) Not detected (Not Detect) Influenza Type B (PCR) Not detected (Not Detect) M. pneumoniae (PCR) Not detected (Not Detect) Parainfluenza 1 (PCR) Not detected (Not Detect) Parainfluenza 2 (PCR) Not detected (Not Detect) Parainfluenza 3 (PCR) Not detected (Not Detect) Parainfluenza 4 (PCR) Not detected (Not Detect) RSV (PCR) Not detected (Not Detect) Entero/Rhino (PCR) Not detected (Not Detect) Imaging Data Chest x-ray: Radiologist's Impression: [address] [address] XRay Report Signed Patient: Mica Dias I MR#: [id number] : 1940 Acct:[id number] Age/Sex: 82 / F Date of Service: 05/21/22 Loc: ED Accession Number: [id number] ?? Procedure: XR chest 1V Ordering Provider: Nael Arreola MD PROCEDURE:? XR CHEST 1V ? INDICATIONS:? chest pain ? TECHNIQUE:? One view of the chest was acquired.? ? COMPARISON:? None. ? FINDINGS:? ? Surgical changes and devices:? None.? ? Lungs and pleura:? Patchy opacities noted in the apex of the left lung.? No pleural effusions or pneumothorax.? ? Mediastinum:? Mediastinal contours appear normal.? Heart size is normal.? ? Bones and chest wall:? No suspicious bony lesions.? Overlying soft tissues appear unremarkable.? ? IMPRESSION:? Patchy opacities in the apex of the left lung which could represent pneumonia or pleural-parenchymal scarring.? ? Dictated by: Dary Carrasco MD, PhD on 05/21/2022 at 17:07 ? ? Approved by: Dary Carrasco MD, PhD on 05/21/2022 at 17:08 ? Extremity x-ray #1: Radiologist's Impression: [address] [address] XRay Report Signed Patient: Mica Dias I MR#: [id number] : 1940 Acct:[id number] Age/Sex: 82 / F Date of Service: 05/21/22 Loc: ED Accession Number: [id number] ?? Procedure: XR hip w pel if done LT 2V Ordering Provider: Nael Arreola MD PROCEDURE:? XR HIP W PEL IF DONE LT 2V ? INDICATIONS:? fall ? TECHNIQUE:? AP pelvis with lateral view(s) of the left hip(s).? ? COMPARISON:? None. ? FINDINGS:? ? Bones:? No fractures or dislocations.? Pelvic ring appears intact.? No suspicious bony lesions.? ? Soft tissues:? The visualized bowel gas pattern is normal.? No suspicious soft tissue calcifications.? ? ? IMPRESSION:? No fracture. No acute osseous lesion. If symptoms and/or clinical suspicion for pathology persists, further assessment with repeat radiographs (7-10 days) or advanced imaging (e.g. CT, MRI or bone scan) should be considered. ? ? ? Dictated by: Dary Carrasco MD, PhD on 05/21/2022 at 17:06 ? ? Approved by: Dary Carrasco MD, PhD on 05/21/2022 at 17:07 ? Extremity x-ray #2: Radiologist's Impression: [address] [address] XRay Report Signed Patient: Mica Dias I MR#: [id number] : 1940 Acct:[id number] Age/Sex: 82 / F Date of Service: 05/21/22 Loc: ED Accession Number: [id number] ?? Procedure: XR knee LT 1to2V Ordering Provider: Nael Arreola MD PROCEDURE:? XR KNEE LT 1TO2V ? INDICATIONS:? fall ? TECHNIQUE:? 2 views of the knee were acquired.? ? COMPARISON:? None. ? FINDINGS:? ? Bones:? No fractures or dislocations.? No suspicious bony lesions.? Mild to moderate tricompartment osteoarthritis.? ? Soft tissues:? No joint effusion.? No suspicious soft tissue calcifications.? ? ? IMPRESSION:? No fracture. No acute osseous lesion. If symptoms and/or clinical suspicion for pathology persists, further assessment with repeat radiographs (7-10 days) or advanced imaging (e.g. CT, MRI or bone scan) should be considered. ? ? Dictated by: Dary Carrasco MD, PhD on 05/21/2022 at 17:05 ? ? Approved by: Dary Carrasco MD, PhD on 05/21/2022 at 17:05 ? CT scan - head: Radiologist's Impression: [address] [address] [address] Scan Report Signed Patient: Mica Dias I MR#: [id number] : 1940 Acct:[id number] Age/Sex: 82 / F Date of Service: 05/21/22 Loc: ED Accession Number: [id number] ?? Procedure: CT head/brain wo con Ordering Provider: Nael Arreola MD PROCEDURE:? CT HEAD/BRAIN WO CON ? INDICATIONS:? fall/injury ? TECHNIQUE:? Noncontrast 4.5 mm thick angled axial sections acquired from the foramen magnum to the vertex, with coronal and sagittal reformats.? For radiation dose reduction, the following was used:? automated exposure control, adjustment of mA and/or kV according to patient size.? ? COMPARISON:? None. ? FINDINGS:? Image quality:? Excellent.? ? CSF spaces:? Basal cisterns are patent.? No extra-axial fluid collections.? The ventricles are symmetric in size and shape.? ? Brain:? No intracranial bleeds or masses.? There is cerebral volume loss for age, with resultant ventricular and sulcal prominence.? There are periventricular and deep white matter chronic small vessel ischemic changes.? There is intracranial internal carotid artery atherosclerosis.? ? Skull and face:? Calvarium and visualized facial bones appear intact, without suspicious lesions.? ? Sinuses:? Visualized sinuses and mastoids are clear.? ? IMPRESSION:? 1. No CT evidence of acute intracranial abnormalities.? No gross acute skull fracture. 2. Diffuse atrophy and moderate microvascular ischemic changes.? ? ? Dictated by: Omega Corbett M.D. on 05/21/2022 at 16:47 ? ? Approved by: Omega Corbett M.D. on 05/21/2022 at 16:48 ? CT - cervical spine: Radiologist's Impression: [place] [address] CT Scan Report Signed Patient: Mica Dias I MR#: [id number] : 1940 Acct:[id number] Age/Sex: 82 / F Date of Service: 05/21/22 Loc: ED Accession Number: [id number] ?? Procedure: CT cervical spine wo con Ordering Provider: Nael Arreola MD PROCEDURE:? CT CERVICAL SPINE WO CON ? INDICATIONS:? fall/injury ? TECHNIQUE:? Noncontrast 3 mm thick sections acquired from the skull base to the T4 level.? Sagittal and coronal reformats were then constructed.? For radiation dose reduction, the following was used:? automated exposure control, adjustment of mA and/or kV according to patient size.? ? COMPARISON:? None. ? FINDINGS:? Image quality:? Excellent.? ? Bones:? No fractures or dislocations.? 3 mm anterolisthesis of C3 on C4 and C4 o n C5 is seen.? There are loss of disc height, degenerative endplate changes and bilateral facet hypertrophic changes throughout cervical spine more prominent at C5-6 and C6-7 levels causing [id number] central canal stenosis and bilateral neural foraminal narrowing. ?Visualized superior ribs are intact.? ? Soft tissues:? Prevertebral soft tissues are normal in thickness.? No paravertebral hematomas.? No apical pneumothoraces.? Emphysematous changes are seen in bilateral lung apices with biapical scarring. ? ? IMPRESSION:? 1. No acute cervical spine fracture or dislocation. 2. Degenerative disc disease throughout cervical spine as described above.? ? ? Dictated by: Omega Corbett M.D. on 05/21/2022 at 16:49 ? ? Approved by: Omega Corbett M.D. on 05/21/2022 at 16:50 ? CT chest abd pelvis: Radiologist's Impression: [place] [address] CT Scan Report Signed Patient: Mica Dias I MR#: [id number] : 1940 Acct:[id number] Age/Sex: 82 / F Date of Service: 05/21/22 Loc: ED Accession Number: [id number] ?? Procedure: CT chest abd pel w con Ordering Provider: Nael Arreola MD PROCEDURE:? CT CHEST ABD PEL W CON ? INDICATIONS:? IV contrast only/Abdominal pain/weight loss ? TECHNIQUE:? After the administration of oral and intravenous contrast, axial sections acquired from the supraclavicular neck to the pubic symphysis.? Coronal and sagittal reformats were performed.? For radiation dose reduction, the following was used:? automated exposure control, adjustment of mA and/or kV according to patient size.? ? COMPARISON:[facility], CR, XR HIP W PEL IF DONE LT 2V, 05/21/2022, 15:58.? [facility], CR, XR KNEE LT 1TO2V, 05/21/2022, 15:58.? [facility], CR, XR CHEST 1V, 05/21/2022, 15:58.? [facility] ([facility]), CR, XR LUMBAR SPINE 2-3V, 02/14/2022, 9:08.? [facility], CT, CT HEAD/BRAIN WO CON, 05/21/2022, 17:10.? [facility], CT, CT CERVICAL SPINE WO CON, 05/21/2022, 17:10. ? FINDINGS:? Image quality: This evaluation is limited, secondary to the patient's inability to fully cooperate with the examination.? ? CHEST: Lower Neck: No enlarged lymph nodes.? Thyroid: Within normal limits. Axillae: No enlarged lymph nodes. Chest Wall:? Unremarkable.? ? Lungs and Airways:? Emphysematous changes are seen, which are worst superiorly.? Subpleural bleb formation can be seen. Pleura: No pneumothorax or pleural effusions.? ? Heart: Heart size is normal.? No pericardial effusion.? There is at least moderate coronary artery calcification. Thoracic Vessels: The aorta and pulmonary arteries demonstrate normal size.? Atherosclerotic calcification is noted.? Mediastinum and Lauryn: No enlarged lymph nodes.? Esophagus:? There is wall thickening seen involving the distal esophagus.? A likely hiatal hernia is present. ? ABDOMEN: Liver:? Unremarkable.? ? Gallbladder:? Unremarkable.? ? Biliary ducts:? Unremarkable.? ? Pancreas:? The pancreas is atrophic.? No pancreatic ductal dilatation is seen. Spleen:? Unremarkable.? ? Adrenal Glands:? Generalized thickening can be seen of the adrenal glands, yet without focal adrenal nodules. Kidneys and Ureters:? Unremarkable.? ? ? Stomach and Bowel:? Generalized moderate wall thickening can be seen involving the distal colon, including the sigmoid colon and the rectum.? The more proximal colon demonstrates no significant abnormality. No dilated loops of small bowel are seen. No significant gastric abnormality is seen. Peritoneum:? No abnormal intraperitoneal fluid.? No free air.? ? Ventral Wall: ? No hernia.? Abdominal Nodes:? No retroperitoneal or mesenteric adenopathy by size criteria.? Vessels:? Aorta and inferior vena cava are normal in size.? Atherosclerotic calcification is noted.? ? PELVIS: Pelvic Organs:? Unremarkable.? ? Bladder:? Unremarkable.? ? Pelvic Nodes: No enlarged lymph nodes.? Miscellaneous: No inguinal hernias are seen. ? ? ? Bones:? A T12 fracture is again seen, with a subacute appearance.? There is posterior displacement of fracture fragments of 7 mm.? Grade 1 L4-L5 anterolisthesis can be seen, without associated pars defects. ? IMPRESSION:? Wall thickening is seen involving the distal esophagus.? Please consider reflux disease versus neoplasm.? If clinically appropriate, please consider upper endoscopy for further evaluation. ? Moderate distal colonic wall thickening can be seen.? Please correlate with potential infectious and inflammatory causes of colitis. ? No findings of perforation or abscess can be seen. ? Emphysematous changes are seen. ? A T12 fracture is again seen, as previously demonstrated by plain film.? Posterior displacement of free Becher fragments can be seen.? Incidental note is made of: At least moderate coronary artery calcification Grade 1 L4-5 anterolisthesis ? Dictated by: Ivan Unger M.D. on 05/21/2022 at 18:01 ? ? Approved by: Ivan Unger M.D. on 05/21/2022 at 18:07 ? ECG Data Interpretation: Sinus tachycardia rate [address] elevation or depression Repeat EKG at 6:20 p.m., sinus tachycardia rate 135 unchanged MDM Narrative Medical decision making narrative: Appropriate for admission for neoplastic workup as well as failure to thrive. Reviewed with hospitalist agrees for admit. Patient's tachycardia may be prerenal/dehydration. Poor intake due to possible neoplastic esophageal finding. <Ney Gibbs, DO - Last Filed: 05/22/22 06:02> Lab Data Labs: Lab Results 05/21/22 05/21/22 05/21/22 Range/Units 16:15 16:15 16:50 WBC 24.2 H (4.5-11.0) X10^3/uL RBC 3.88 L (4.0-5.2) X10^6/uL Hgb 12.0 (12.0-16.0) g/dL Hct 36.5 (36-46) % MCV 94.0 (80-100) fL MCH 30.9 (26-34) PG MCHC 32.9 (30-36) % RDW 15.4 H (11.6-14.8) % Plt Count 488 H (150-400) X10^3/uL Neut % (Auto) 90.4 H (50-75) % Lymph % (Auto) 4.6 L (25-40) % Villalba % (Auto) 4.9 (3-14) % Eos % (Auto) 0.0 L (2-4) % Baso % (Auto) 0.1 (0-2) % Neut # (Auto) 14230 H (1064-2179) /uL Lymph # (Auto) 1100 (9345-2808) /uL Villalba # (Auto) 1200 H (0-900) /uL Eos # (Auto) 0 (0-450) /uL Baso # (Auto) 0 (0-100) /uL Sodium 133 L (137-145) mmol/L Potassium 2.9 L (3.4-5.1) mmol/L Chloride 102 (98-107) mmol/L Carbon Dioxide 19 L (22-32) mmol/L BUN 38 H (7-17) mg/dL Creatinine 1.01 (0.52-1.04) mg/dL Estimated GFR 55 L (>60) mL/min BUN/Creatinine Ratio 37.6 H (6-22) Glucose 138 H (80-110) mg/dL Calcium 8.3 L (8.4-10.2) mg/dL Magnesium 1.8 (1.6-2.3) mg/dL Total Bilirubin 0.3 (0.2-1.3) mg/dL AST 31 (14-36) IU/L ALT 15 (<35) IU/L Alkaline Phosphatase 85 (38-126) U/L Total Creatine Kinase 141 H (30-135) U/L CK-MB (CK-2) 3.11 H (<2.37) ng/mL CK-MB (CK-2) Rel Index 2.2 (1.5-5.0) % Troponin I 0.043 H (0.01-0.034) ng/mL Total Protein 6.6 (6.3-8.2) g/dL Albumin 3.6 (3.5-5.0) g/dL Globulin 3.0 (1.7-4.1) g/dL Albumin/Globulin Ratio 1.2 (1.0-2.8) Lipase 72 (23-300) U/L Urine Color Yellow Urine Appearance Slightly cloudy Urine pH 5.5 (4.5-8.0) Ur Specific Zoar 1.015 (1.000-1.035) Urine Protein 1+ H (Negative) Urine Glucose (UA) Negative (Negative) g/dL Urine Ketones Negative (NEGATIVE) Urine Occult Blood Trace-intact (Negative) Urine Nitrate Negative (Negative) Urine Bilirubin Negative (NEGATIVE) Urine Urobilinogen 0.2 (0.2) E.U./dL Ur Leukocyte Esterase 1+ H (NEGATIVE) Urine RBC 0-1/hpf (0-5/HPF) Urine WBC 1-5/hpf (0-5/HPF) Ur Squamous Epith Cells 1-5 /hpf (0-5/HPF) Urine Bacteria Occasional (0-1) (None) Ur Culture Indicated? Specimen cultured Chlamy pneumoniae PCR (Not Detect) Adenovirus (PCR) (Not Detect) B. pertussis DNA (PCR) (Not Detecte) B.parapertussis DNA PCR (Not Detecte) Coronavirus OC43 (PCR) (Not Detect) Coronavirus HKU1 (PCR) (Not Detect) Coronavirus 229E (PCR) (Not Detect) SARS-CoV-2 (PCR) (Not Detecte) Coronavirus NL63 (PCR) (Not Detect) Human Metapneumovir PCR (Not Detect) Influenza Type A (PCR) (Not Detect) Influenza Type B (PCR) (Not Detect) M. pneumoniae (PCR) (Not Detect) Parainfluenza 1 (PCR) (Not Detect) Parainfluenza 2 (PCR) (Not Detect) Parainfluenza 3 (PCR) (Not Detect) Parainfluenza 4 (PCR) (Not Detect) RSV (PCR) (Not Detect) Entero/Rhino (PCR) (Not Detect) 05/21/22 Range/Units 17:00 WBC (4.5-11.0) X10^3/uL RBC (4.0-5.2) X10^6/uL Hgb (12.0-16.0) g/dL Hct (36-46) % MCV (80-100) fL MCH (26-34) PG MCHC (30-36) % RDW (11.6-14.8) % Plt Count (150-400) X10^3/uL Neut % (Auto) (50-75) % Lymph % (Auto) (25-40) % Villalba % (Auto) (3-14) % Eos % (Auto) (2-4) % Baso % (Auto) (0-2) % Neut # (Auto) (6665-1852) /uL Lymph # (Auto) (6998-1407) /uL Villalba # (Auto) (0-900) /uL Eos # (Auto) (0-450) /uL Baso # (Auto) (0-100) /uL Sodium (137-145) mmol/L Potassium (3.4-5.1) mmol/L Chloride (98-107) mmol/L Carbon Dioxide (22-32) mmol/L BUN (7-17) mg/dL Creatinine (0.52-1.04) mg/dL Estimated GFR (>60) mL/min BUN/Creatinine Ratio (6-22) Glucose (80-110) mg/dL Calcium (8.4-10.2) mg/dL Magnesium (1.6-2.3) mg/dL Total Bilirubin (0.2-1.3) mg/dL AST (14-36) IU/L ALT (<35) IU/L Alkaline Phosphatase (38-126) U/L Total Creatine Kinase (30-135) U/L CK-MB (CK-2) (<2.37) ng/mL CK-MB (CK-2) Rel Index (1.5-5.0) % Troponin I (0.01-0.034) ng/mL Total Protein (6.3-8.2) g/dL Albumin (3.5-5.0) g/dL Globulin (1.7-4.1) g/dL Albumin/Globulin Ratio (1.0-2.8) Lipase (23-300) U/L Urine Color Urine Appearance Urine pH (4.5-8.0) Ur Specific Zoar (1.000-1.035) Urine Protein (Negative) Urine Glucose (UA) (Negative) g/dL Urine Ketones (NEGATIVE) Urine Occult Blood (Negative) Urine Nitrate (Negative) Urine Bilirubin (NEGATIVE) Urine Urobilinogen (0.2) E.U./dL Ur Leukocyte Esterase (NEGATIVE) Urine RBC (0-5/HPF) Urine WBC (0-5/HPF) Ur Squamous Epith Cells (0-5/HPF) Urine Bacteria (None) Ur Culture Indicated? Chlamy pneumoniae PCR Not detected (Not Detect) Adenovirus (PCR) Not detected (Not Detect) B. pertussis DNA (PCR) Not detected (Not Detecte) B.parapertussis DNA PCR Not detected (Not Detecte) Coronavirus OC43 (PCR) Not detected (Not Detect) Coronavirus HKU1 (PCR) Not detected (Not Detect) Coronavirus 229E (PCR) Not detected (Not Detect) SARS-CoV-2 (PCR) Not detected (Not Detecte) Coronavirus NL63 (PCR) Not detected (Not Detect) Human Metapneumovir PCR Not detected (Not Detect) Influenza Type A (PCR) Not detected (Not Detect) Influenza Type B (PCR) Not detected (Not Detect) M. pneumoniae (PCR) Not detected (Not Detect) Parainfluenza 1 (PCR) Not detected (Not Detect) Parainfluenza 2 (PCR) Not detected (Not Detect) Parainfluenza 3 (PCR) Not detected (Not Detect) Parainfluenza 4 (PCR) Not detected (Not Detect) RSV (PCR) Not detected (Not Detect) Entero/Rhino (PCR) Not detected (Not Detect) MDM Narrative Medical decision making narrative: Appropriate for admission for neoplastic workup as well as failure to thrive. Reviewed with hospitalist agrees for admit. Patient's tachycardia may be prerenal/dehydration. Poor intake due to possible neoplastic esophageal finding. 1800 ([place]) patient briefly received in signout, however patient was admitted prior to my involvement Discharge Plan Departure Patient Disposition: Admitted As Inpatient Clinical Impression: Adult failure to thrive Admit Date/Time: 05/21/22 21:44 Admit Provider: Annika Gomes
--- NOTE | 2022-05-21 16:41 | DI.CT.S_ITS ---
PROCEDURE: CT CERVICAL SPINE WO CON INDICATIONS: fall/injury TECHNIQUE: Noncontrast 3 mm thick sections acquired from the skull base to the T4 level. Sagittal and coronal reformats were then constructed. For radiation dose reduction, the following was used: automated exposure control, adjustment of mA and/or kV according to patient size. COMPARISON: None. FINDINGS: Image quality: Excellent. Bones: No fractures or dislocations. 3 mm anterolisthesis of C3 on C4 and C4 on C5 is seen. There are loss of disc height, degenerative endplate changes and bilateral facet hypertrophic changes throughout cervical spine more prominent at C5-6 and C6-7 levels causing [id number] central canal stenosis and bilateral neural foraminal narrowing. Visualized superior ribs are intact. Soft tissues: Prevertebral soft tissues are normal in thickness. No paravertebral hematomas. No apical pneumothoraces. Emphysematous changes are seen in bilateral lung apices with biapical scarring. IMPRESSION: 1. No acute cervical spine fracture or dislocation. 2. Degenerative disc disease throughout cervical spine as described above. Dictated by: Omega Corbett M.D. on 05/21/2022 at 16:49 Approved by: Omega Corbett M.D. on 05/21/2022 at 16:50
--- NOTE | 2022-05-21 16:41 | DI.CT.S_ITS ---
PROCEDURE: CT HEAD/BRAIN WO CON INDICATIONS: fall/injury TECHNIQUE: Noncontrast 4.5 mm thick angled axial sections acquired from the foramen magnum to the vertex, with coronal and sagittal reformats. For radiation dose reduction, the following was used: automated exposure control, adjustment of mA and/or kV according to patient size. COMPARISON: None. FINDINGS: Image quality: Excellent. CSF spaces: Basal cisterns are patent. No extra-axial fluid collections. The ventricles are symmetric in size and shape. Brain: No intracranial bleeds or masses. There is cerebral volume loss for age, with resultant ventricular and sulcal prominence. There are periventricular and deep white matter chronic small vessel ischemic changes. There is intracranial internal carotid artery atherosclerosis. Skull and face: Calvarium and visualized facial bones appear intact, without suspicious lesions. Sinuses: Visualized sinuses and mastoids are clear. IMPRESSION: 1. No CT evidence of acute intracranial abnormalities. No gross acute skull fracture. 2. Diffuse atrophy and moderate microvascular ischemic changes. Dictated by: Omega Corbett M.D. on 05/21/2022 at 16:47 Approved by: Omega Corbett M.D. on 05/21/2022 at 16:48
[2022-05-21] MEDS: SODIUM CHLORIDE 0.9% 1,000 ML 1000 ML IV ×2 (16:46→20:17)
[2022-05-21 16:48] LABS: Alanine Aminotransferase 15 IU/L (<35); Albumin 3.6 g/dL (3.5-5.0); Albumin Globulin Ratio 1.2 (1.0-2.8); Alkaline Phosphatase 85 U/L (38-126); Aspartate Aminotransferase 31 IU/L (14-36); BUN Creatinine Ratio 37.6 (6-22); Bilirubin Total 0.3 mg/dL (0.2-1.3); Blood Urea Nitrogen 38 mg/dL (7-17); Calcium 8.3 mg/dL (8.4-10.2); Carbon Dioxide 19 mmol/L (22-32); Chloride 102 mmol/L (98-107); Creatine Kinase 141 U/L (30-135); Estimated Glomerular Filt Rate 55 mL/min (>60); Glucose 138 mg/dL (80-110); HEMOLYSIS 27 (0-50); Lipase 72 U/L (23-300); Magnesium 1.8 mg/dL (1.6-2.3); Potassium 2.9 mmol/L (3.4-5.1); Sodium 133 mmol/L (137-145); Total Protein 6.6 g/dL (6.3-8.2)
[2022-05-21 16:58] LABS: Troponin I 0.043 ng/mL (0.01-0.034)
[2022-05-21 17:03] LABS: CKMB % Relative Index 2.2 % (1.5-5.0); Creatine Kinase MB 3.11 ng/mL (<2.37)
--- NOTE | 2022-05-21 17:19 | PC.NURSE ---
Dr. Arreola made aware of pt's lab work and high HR. Will continue to infuse IVF. No further orders at this time
[2022-05-21 17:26] LABS: Bilirubin Urine UA NEGATIVE (NEGATIVE); Color Urine UA YELLOW; Glucose Urine UA NEGATIVE (Negative); Ketones Urine UA NEGATIVE (NEGATIVE); Leukocyte Esterase Urine UA 1+ (NEGATIVE); Nitrite Urine UA NEGATIVE (Negative); Occult Blood Urine UA TRACE-INTACT (Negative); Protein Urine UA 1+ (Negative); Specific Gravity Urine UA 1.015 (1.000-1.035); Urobilinogen Urine UA 0.2 E.U./dL (0.2)
[2022-05-21 17:32] LABS: Appearance Urine UA Slightly Cloudy; pH Urine UA 5.5 (4.5-8.0)
[2022-05-21 17:38] LABS: Bacteria Urine Occasional (0-1); Culture Indicated Urine Specimen Cultured; RBC Urine 0-1/HPF (0-5/HPF); Squamous Epithelial Cell Urine 1-5 /HPF (0-5/HPF); WBC Urine 1-5/HPF (0-5/HPF)
[2022-05-21 18:23] LABS: Adenovirus Not Detected (Not Detect); B. parapertussis Not Detected (Not Detecte); Bordetella pertussis Not Detected (Not Detecte); Chlamydophila pneumoniae Not Detected (Not Detect); Coronavirus 229E Not Detected (Not Detect); Coronavirus HKU1 Not Detected (Not Detect); Coronavirus NL 63 Not Detected (Not Detect); Coronavirus OC43 Not Detected (Not Detect); Human Metapneumovirus Not Detected (Not Detect); Human Rhinovirus/Enterovirus Not Detected (Not Detect); Influenza A Not Detected (Not Detect); Influenza B Not Detected (Not Detect); Mycoplasma pneumoniae Not Detected (Not Detect); Parainfluenza Virus 1 Not Detected (Not Detect); Parainfluenza Virus 2 Not Detected (Not Detect); Parainfluenza Virus 3 Not Detected (Not Detect); Parainfluenza Virus 4 Not Detected (Not Detect); Respiratory Syncytial Virus Not Detected (Not Detect); SARS- CoV-2 Not Detected (Not Detecte)
[2022-05-21] MEDS: SODIUM CHLORIDE 0.9% 1,000 ML 100 ML IV (21:58)
[2022-05-21] MEDS: POTASSIUM CHLORIDE IN WATER 10 MEQ/100 ML PIGGYBACK 100 MEQ IV ×2 (22:01→23:34)
[2022-05-21] MEDS: METOPROLOL TARTRATE 5 MG/5 ML INJ IV (22:06)
--- NOTE | 2022-05-21 22:10 | PC.NURSE ---
220 pt difficult to redirect, removing monitoring equipment, pt removed her IV, provider contacted, verbal order received for soft restraints, initiated 2199
--- NOTE | 2022-05-21 22:11 | CM.MNRNOTE ---
giving metroprolol. starting bp 177/82 with HR of 133
--- NOTE | 2022-05-21 22:15 | PC.NURSE ---
giving first dose of metoprolol. starting bp 177/89 with hr of 133.
[2022-05-21] MEDS: SENNOSIDES 8.6 MG TABLET 17.2 MG PO (22:33)
[2022-05-21] MEDS: DOCUSATE 100 MG CAPSULE PO (22:33)
[2022-05-21 22:35] LABS: C-Reactive Protein Quant 5.2 mg/dL (<1.0)
[2022-05-21 22:43] LABS: Lipase 72 U/L (23-300)
[2022-05-21 22:44] LABS: NT-proBNP (BNP-Adult 18+) 2040 pg/mL (<450)
[2022-05-21 22:48] LABS: Troponin I 0.054 ng/mL (0.01-0.034)
[2022-05-21 22:51] LABS: Hemoglobin A1C% w Est Avg Glu 5.1 % (4.0-6.0)
[2022-05-21 22:53] LABS: Procalcitonin 0.25 ng/mL (<0.5)
[2022-05-21 23:07] LABS: Erythrocyte Sedimentation Rate 25 MM/HR (0-20)
[2022-05-21] MEDS: OXYCODONE/ACETAMINOPHEN 5/325 TABLET 1 TAB PO (23:10)
[2022-05-21] MEDS: PREGABALIN 25 MG CAPSULE PO (23:10)
[2022-05-22] VITALS (10 sets, daily range): BP systolic 119–163; BP diastolic 49–86; PULSE 88–119; RESP 13–20; TEMP 36.4–36.9; O2SAT 95–99; BMI 25.2
[2022-05-22] MEDS: POTASSIUM CHLORIDE IN WATER 10 MEQ/100 ML PIGGYBACK 100 MEQ IV ×4 (00:40→04:34)
--- NOTE | 2022-05-22 02:18 | PM.HP.1 ---
History of Present Illness History of Present Illness Date Patient Seen: 05/21/22 Time Patient Seen: 21:00 Chief complaint: Not eating, fatigued, fall Narrative: Mica Dias is an 82-year-old female?with a medical history chronic low back pain, irritable bladder, long-term opiate use, Alzheimer's dementia, lower extremity weakness, frequent falls, hyperlipidemia, and recent 30 lb weight loss/anorexia within the past 6 months decreased oral intake and failure to thrive. Patient was seen by a new primary care provider today, in which the family advised that the patient had multiple unwitnessed falls recently and had not eaten in 2 days the primary care doc found the patient is severely dehydrated and recommended that the patient be air flighted from [facility] to [facility]. In the ED Dr. Shields reported that the patient was cooperative, but only shook her head yes and no to questions.?Patient lives with daughter.? Daughter at bedside denied nausea vomiting diarrhea, black or bloody stools, but noted decreased urine output. Family was not at bedside during admit interview patient was orientated to place and person, but appeared confused and unable to appropriately answer questions or participate in HPI, Family HX, or ROS appropriately due to Alzheimer's dementia. When asked her age, she stated clearly she was 22 yrs old. The patient was complaining rectal pain, and requesting something to drink. Patient appears frail, pale, anorexic, but in no acute distress at this time. At the time of admit patient was afebrile with a temp of 98.3? BP was 149/83 patient was tachycardic heart rate ranging 120 is to 140s, respiratory rate of 12, O2 saturation 98% on room air. Patient had a white count of 24.2, with a left shift neutrophils 21,800, mono 1200, platelets 488, RBCs 3.88, mild hyponatremia sodium 133, hypokalemia potassium 2.9, bicarb 19, BUN of 38, glucose of 138, GFR 55, total creatinine kinase 141, CK-MB 3.11, troponin 0.043, patient's chest x-ray demonstrated patchy opacities over the apex a left lobe possible pneumonia or pleural parenchymal scarring. Urinalysis was cultured, calcium of 8.3, chest abdomen pelvis CT demonstrated wall thickening of the distal esophagus possible colitis, reflux verses neoplasm, also emphysema noted. Patient's EKG demonstrated sinus tachycardia with a rate of [address] or T-wave changes. Patient's head CT demonstrated no acute intracranial processes with diffuse atrophy and moderate microvascular ischemic changes. C-spine was negative for any acute fractures noted DJD throughout the cervical spine, left knee x-ray and hip x-ray demonstrated no acute fractures. Patient admitted for failure to thrive, with weakness, falls, weight loss resulting in tachycardia, leukocytosis, hypokalemia rule out neoplastic syndrome Patient History Medical History Alzheimer's dementia Chronic low back pain Hyperlipidemia Irritable bladder emt intermediate prescription opiate use Family & Social History Safety & Behavioral: patient lives with her daughter Tobacco & Substance use: Smoking Status Former smoker Meds Home Medications and Allergies Home Medications Medication Instructions Recorded Confirmed Type naloxone 4 mg/actuation nasal spray 1 spray intranasal Q2M #2 ea 11/20/21 05/21/22 Rx lidocaine 5 % topical patch See Rx Instructions .Route 02/14/22 05/21/22 Rx .COMPLEX #15 patches oxybutynin chloride 5 mg See Rx Instructions .Route 02/27/22 05/21/22 Rx tablet,extended release 24 hr .COMPLEX #90 tabs lidocaine 5 % topical patch 3 patch topical DAILY #60 ea 03/13/22 05/21/22 Rx (Lidoderm) atorvastatin 10 mg tablet See Rx Instructions .Route 03/27/22 05/21/22 Rx .COMPLEX #30 tabs donepezil 5 mg tablet (Aricept) 5 mg PO DAILY #90 tabs 04/10/22 05/21/22 Rx pregabalin 25 mg capsule (Lyrica) 25 mg PO BEDTIME #28 caps 04/10/22 05/21/22 Rx oxycodone-acetaminophen 10 mg-325 See Rx Instructions .Route 05/08/22 05/21/22 Rx mg tablet .COMPLEX pain #132 tabs Allergies Allergy/AdvReac Type Severity Reaction Status Date / Time No Known Drug Allergies Allergy Verified 05/21/22 12:59 Review of Systems Review of Systems Narrative: Unable to obtain accurate ROS due to patient's Alzheimer's dementia Exam Vital Signs (past 8 hours): - 05/21/22 18:30 05/21/22 19:00 05/21/22 19:00 Pulse Rate 147 H 120 H Respiratory Rate 15 12 Blood Pressure 149/83 H Pulse Oximetry 98 05/21/22 19:30 05/21/22 19:30 05/21/22 20:00 Pulse Rate 113 H Respiratory Rate 13 Blood Pressure 165/86 H 185/89 H Pulse Oximetry 99 05/21/22 20:00 05/21/22 20:30 05/21/22 20:30 Pulse Rate 130 H 145 H Respiratory Rate 14 13 Blood Pressure 175/92 H Pulse Oximetry 98 98 05/21/22 21:00 05/21/22 21:00 05/21/22 21:30 Pulse Rate 115 H Respiratory Rate 13 Blood Pressure 157/81 H 154/98 H Pulse Oximetry 99 05/21/22 21:30 05/21/22 22:00 05/21/22 22:10 Pulse Rate 140 H 139 H Respiratory Rate 20 19 Blood Pressure 177/82 H Pulse Oximetry 98 97 05/21/22 22:10 05/21/22 22:15 05/21/22 22:15 Pulse Rate 141 H 103 H Respiratory Rate 20 18 Blood Pressure 180/85 H Pulse Oximetry 98 97 05/21/22 22:20 05/21/22 22:20 05/21/22 22:25 Pulse Rate 103 H Respiratory Rate 13 Blood Pressure 183/81 H 166/77 H Pulse Oximetry 97 05/21/22 22:25 05/21/22 22:30 05/21/22 22:30 Pulse Rate 110 H 87 Respiratory Rate 16 19 Blood Pressure 178/77 H Pulse Oximetry 98 98 05/21/22 22:35 05/21/22 22:35 05/21/22 23:00 Pulse Rate 87 81 Respiratory Rate 20 13 Blood Pressure 166/74 H Pulse Oximetry 98 99 05/21/22 23:30 05/22/22 00:00 05/22/22 00:00 Pulse Rate 106 H 119 H Respiratory Rate 15 14 Blood Pressure 163/86 H Pulse Oximetry 98 97 05/22/22 00:30 05/22/22 01:00 05/22/22 01:30 Pulse Rate 88 91 H 93 H Respiratory Rate 13 14 13 Blood Pressure Pulse Oximetry 98 99 98 Oxygen Delivery Method Room Air Narrative Exam Narrative: General: Patient is an anorexic appearing, frail, pale confused elderly female in no distress at this time. HEENT: Normocephalic, atraumatic, extraocular muscles intact, oral pharynx is clear and mucous membranes are dry.. Neck is supple and symmetric, trachea is midline, no adenopathy, no thyroid enlargement, nontender, no masses palpated. Negative for JVD Chest: Breathing no nasal flaring, retractions, tachypneic or labored. Lungs: Auscultation of all lung mcnally are clear without adventitious sounds, wheezes, rhonchi, or rales. Cardio: Tachycardic rate and rhythm without murmur, rubs, or gallops, no carotid bruit, no cardiac pulsations present. Abdomen: Soft nontender, negative for organomegaly, or masses. Bowel sounds are hypoactive in all 4 quadrants without guarding or rebound, no CVA tenderness. Musculoskeletal: Muscle strength and tone are equal, but noted wasting, no deformity, crepitus, effusions, cyanosis, clubbing or edema present. Full range of motion intact radial and pedal pulses are normal. Skin: cool dry appears dehydrated and intact without rashes, ulcerations or petechiae. Neuro: Some what Alert and orientated to name, diffuse weakness, sensation to touch intact, no gross deficits noted of cranial nerves. Psych: Patient presents in a weakened chronically ill appearance, confused with depressed affect. Objective Labs Result Diagrams: 05/21/22 16:15 05/21/22 16:15 Labs: Laboratory Results - last 24 hr 05/21/22 05/21/22 05/21/22 16:15 16:15 16:50 WBC 24.2 H RBC 3.88 L Hgb 12.0 Hct 36.5 MCV 94.0 MCH 30.9 MCHC 32.9 RDW 15.4 H Plt Count 488 H Neut % (Auto) 90.4 H Lymph % (Auto) 4.6 L [place] % (Auto) 4.9 Eos % (Auto) 0.0 L Baso % (Auto) 0.1 Neut # (Auto) 62234 H Lymph # (Auto) 1100 [place] # (Auto) 1200 H Eos # (Auto) 0 Baso # (Auto) 0 ESR Sodium 133 L Potassium 2.9 L Chloride 102 Carbon Dioxide 19 L BUN 38 H Creatinine 1.01 Estimated GFR 55 L BUN/Creatinine Ratio 37.6 H Glucose 138 H Hemoglobin A1c Calcium 8.3 L Magnesium 1.8 Total Bilirubin 0.3 AST 31 ALT 15 Alkaline Phosphatase 85 Total Creatine Kinase 141 H CK-MB (CK-2) 3.11 H CK-MB (CK-2) Rel Index 2.2 Troponin I 0.043 H C-Reactive Protein NT-Pro-B Natriuret Pep Total Protein 6.6 Albumin 3.6 Globulin 3.0 Albumin/Globulin Ratio 1.2 Lipase 72 Procalcitonin Urine Color Yellow Urine Appearance Slightly cloudy Urine pH 5.5 Ur Specific [place] 1.015 Urine Protein 1+ H Urine Glucose (UA) Negative Urine Ketones Negative Urine Occult Blood Trace-intact Urine Nitrate Negative Urine Bilirubin Negative Urine Urobilinogen 0.2 Ur Leukocyte Esterase 1+ H Urine RBC 0-1/hpf Urine WBC 1-5/hpf Ur Squamous Epith Cells 1-5 /hpf Urine Bacteria Occasional (0-1) Ur Culture Indicated? Specimen cultured Chlamy pneumoniae PCR Adenovirus (PCR) B. pertussis DNA (PCR) B.parapertussis DNA PCR Coronavirus OC43 (PCR) Coronavirus HKU1 (PCR) Coronavirus 229E (PCR) SARS-CoV-2 (PCR) Coronavirus NL63 (PCR) Human Metapneumovir PCR Influenza Type A (PCR) Influenza Type B (PCR) M. pneumoniae (PCR) Parainfluenza 1 (PCR) Parainfluenza 2 (PCR) Parainfluenza 3 (PCR) Parainfluenza 4 (PCR) RSV (PCR) Entero/Rhino (PCR) 05/21/22 05/21/22 05/21/22 17:00 22:05 22:05 WBC RBC Hgb Hct MCV MCH MCHC RDW Plt Count Neut % (Auto) Lymph % (Auto) [place] % (Auto) Eos % (Auto) Baso % (Auto) Neut # (Auto) Lymph # (Auto) [place] # (Auto) Eos # (Auto) Baso # (Auto) ESR 25 H Sodium Potassium Chloride Carbon Dioxide BUN Creatinine Estimated GFR BUN/Creatinine Ratio Glucose Hemoglobin A1c Calcium Magnesium Total Bilirubin AST ALT Alkaline Phosphatase Total Creatine Kinase CK-MB (CK-2) CK-MB (CK-2) Rel Index Troponin I C-Reactive Protein NT-Pro-B Natriuret Pep 2040 H Total Protein Albumin Globulin Albumin/Globulin Ratio Lipase Procalcitonin Urine Color Urine Appearance Urine pH Ur Specific [place] Urine Protein Urine Glucose (UA) Urine Ketones Urine Occult Blood Urine Nitrate Urine Bilirubin Urine Urobilinogen Ur Leukocyte Esterase Urine RBC Urine WBC Ur Squamous Epith Cells Urine Bacteria Ur Culture Indicated? Chlamy pneumoniae PCR Not detected Adenovirus (PCR) Not detected B. pertussis DNA (PCR) Not detected B.parapertussis DNA PCR Not detected Coronavirus OC43 (PCR) Not detected Coronavirus HKU1 (PCR) Not detected Coronavirus 229E (PCR) Not detected SARS-CoV-2 (PCR) Not detected Coronavirus NL63 (PCR) Not detected Human Metapneumovir PCR Not detected Influenza Type A (PCR) Not detected Influenza Type B (PCR) Not detected M. pneumoniae (PCR) Not detected Parainfluenza 1 (PCR) Not detected Parainfluenza 2 (PCR) Not detected Parainfluenza 3 (PCR) Not detected Parainfluenza 4 (PCR) Not detected RSV (PCR) Not detected Entero/Rhino (PCR) Not detected 05/21/22 05/21/22 05/21/22 22:05 22:05 22:05 WBC RBC Hgb Hct MCV MCH MCHC RDW Plt Count Neut % (Auto) Lymph % (Auto) [place] % (Auto) Eos % (Auto) Baso % (Auto) Neut # (Auto) Lymph # (Auto) [place] # (Auto) Eos # (Auto) Baso # (Auto) ESR Sodium Potassium Chloride Carbon Dioxide BUN Creatinine Estimated GFR BUN/Creatinine Ratio Glucose Hemoglobin A1c 5.1 Calcium Magnesium Total Bilirubin AST ALT Alkaline Phosphatase Total Creatine Kinase CK-MB (CK-2) CK-MB (CK-2) Rel Index Troponin I C-Reactive Protein 5.2 H NT-Pro-B Natriuret Pep Total Protein Albumin Globulin Albumin/Globulin Ratio Lipase Procalcitonin 0.25 Urine Color Urine Appearance Urine pH Ur Specific [place] Urine Protein Urine Glucose (UA) Urine Ketones Urine Occult Blood Urine Nitrate Urine Bilirubin Urine Urobilinogen Ur Leukocyte Esterase Urine RBC Urine WBC Ur Squamous Epith Cells Urine Bacteria Ur Culture Indicated? Chlamy pneumoniae PCR Adenovirus (PCR) B. pertussis DNA (PCR) B.parapertussis DNA PCR Coronavirus OC43 (PCR) Coronavirus HKU1 (PCR) Coronavirus 229E (PCR) SARS-CoV-2 (PCR) Coronavirus NL63 (PCR) Human Metapneumovir PCR Influenza Type A (PCR) Influenza Type B (PCR) M. pneumoniae (PCR) Parainfluenza 1 (PCR) Parainfluenza 2 (PCR) Parainfluenza 3 (PCR) Parainfluenza 4 (PCR) RSV (PCR) Entero/Rhino (PCR) 05/21/22 05/21/22 22:05 22:05 WBC RBC Hgb Hct MCV MCH MCHC RDW Plt Count Neut % (Auto) Lymph % (Auto) [place] % (Auto) Eos % (Auto) Baso % (Auto) Neut # (Auto) Lymph # (Auto) [place] # (Auto) Eos # (Auto) Baso # (Auto) ESR Sodium Potassium Chloride Carbon Dioxide BUN Creatinine Estimated GFR BUN/Creatinine Ratio Glucose Hemoglobin A1c Calcium Magnesium Total Bilirubin AST ALT Alkaline Phosphatase Total Creatine Kinase CK-MB (CK-2) CK-MB (CK-2) Rel Index Troponin I 0.054 H C-Reactive Protein NT-Pro-B Natriuret Pep Total Protein Albumin Globulin Albumin/Globulin Ratio Lipase 72 Procalcitonin Urine Color Urine Appearance Urine pH Ur Specific [place] Urine Protein Urine Glucose (UA) Urine Ketones Urine Occult Blood Urine Nitrate Urine Bilirubin Urine Urobilinogen Ur Leukocyte Esterase Urine RBC Urine WBC Ur Squamous Epith Cells Urine Bacteria Ur Culture Indicated? Chlamy pneumoniae PCR Adenovirus (PCR) B. pertussis DNA (PCR) B.parapertussis DNA PCR Coronavirus OC43 (PCR) Coronavirus HKU1 (PCR) Coronavirus 229E (PCR) SARS-CoV-2 (PCR) Coronavirus NL63 (PCR) Human Metapneumovir PCR Influenza Type A (PCR) Influenza Type B (PCR) M. pneumoniae (PCR) Parainfluenza 1 (PCR) Parainfluenza 2 (PCR) Parainfluenza 3 (PCR) Parainfluenza 4 (PCR) RSV (PCR) Entero/Rhino (PCR) Assessment & Plan Assessment & Plan narrative: Mica Dias is an 82-year-old female?with a medical history chronic low back pain, irritable bladder, long-term opiate use, Alzheimer's dementia, lower extremity weakness, frequent falls, hyperlipidemia, and recent 30 lb weight loss/anorexia within the past 6 months decreased oral intake and failure to thrive. Family was not at bedside during admit interview patient was orientated to place and person, but appeared confused and unable to appropriately answer questions or participate in HPI, Family HX, or ROS. Patient admitted for failure to thrive, with weakness, falls, weight loss resulting in tachycardia, leukocytosis, hypokalemia rule out neoplastic syndrome after failing out-patient management. Patient will need hydration, electrolyte correction, ortho evaluation, strengthening reconditioning, nutritional evaluation, and ruling out cardiac, neoplastic, or infectious process. As well as patient and family goals of care. 1. Failure to thrive as evidence by weakness, falls, weight loss, acute, present on admission -Wt pending on admit as pt is boarding in ED. Chart review: PCP 12/20/21 wt 116Lbs, 03/13/22 wt 99lbs -patient appears malnourished and dehydrated as evidenced by tachycardia, hyponatremia, hyporkalemia, elevated troponin -chart reviews: Several documented falls, extremity weakness, wheelchair-bound -head CT demonstrated no acute intracranial processes with diffuse atrophy and moderate microvascular ischemic changes. C-spine was negative for any acute fractures noted DJD throughout the cervical spine, left knee x-ray and hip x-ray demonstrated no acute fractures. -consult: Dietary, IMPROVEMENT COORDINATOR, PT, OT-patient may require SNF/Rehab -Ortho Consult evaluation due to frquent falls/injuries -hyponatremia: Sodium 133-NS at 100 cc/HR -hypokalemia: Potassium 2.9-60 mEq K rider 2. Myocardial injury as evidence by elevated troponin, with tachycardia, acute, present on admission -troponin 1. 0.043, 2. 0.054- will trend -possible rhabdo, demand injury -total creatinine kinase 141, CK-MB 3.11, -ordered BNP, Echo -EKG demonstrated sinus tachycardia with a rate of [address] or T-wave changes. -tachycardia metoprolol 5 mg IV Q 15 minutes x3 with a goal of a heart rate below 110 -Evaluate pt for initiation of medication management for possible HTN, Sinus tachycardia r/o Afib, NSTEMI- placed on telemed. -Monitor for Chest pain 3. Leukocytosis, acute, present on admission -r/o possible neoplastic syndrome -chest abdomen pelvis CT demonstrated wall thickening of the distal esophagus possible colitis, reflux verses neoplasm, also emphysema noted. -white count of 24.2, with a left shift neutrophils 21,800, mono 1200 -chest x-ray demonstrated patchy opacities over the apex a left lobe possible pneumonia or pleural parenchymal scarring. Ordered ESR, CRP, procalcitonin -Dr. Falcon to consult- Possible EGD -blood cultures, sputum cultures, urine culture ordered 4. Chronic low back pain with long-term opiate use, acute on chronic, present on admission -continue pregabalin, oxycodone and lidocaine patches for pain control 5. Alzheimer's dementia, acute on chronic, present on admission -continue donepezil -Monitor for behavioral disturbances/sundowning 6. Hyperlipidemia, chronic, present on admission -continue Lipitor Code status: Full- needs family clarification in am. Surrogate decision maker: Daughter's Mica Woody and Maryse Luke WALSH PCR:Negative DVT/VTE prophylaxis:Lovenox & SCD's Disposition: Patient acute care admit for evaluation failure to thrive rule out neoplastic syndrome, electrolyte correction, expected length of stay greater than 2 midnights. I have utilized all available immediate resources to obtain, update, or review the patient's current medications. I am unable to confirmed the patient's advanced care plan at present, including Code status clarification due to patient's Alzheimer's dementia. RN will verify with family in the morning. I have documented and/or surrogate decision maker is listed in the patient's medical record. Time Spent With Patient Critical Care time: I spent a total of [] minutes of critical care time on this patient's care today; this time is exclusive of procedural time.
[2022-05-22 03:17] LABS: Add Manual Diff / Slide Review NO; Basophils Absolute Auto 100 /uL (0-100); Basophils Percent Auto 0.2 % (0-2); Eosinophils Absolute Auto 0 /uL (0-450); Hemoglobin 11.4 g/dL (12.0-16.0); INR 1.4 (0.9-1.3); Lymphocytes Absolute Auto 2400 /uL (1100-4500); Lymphocytes Percent Auto 9.8 % (25-40); Mean Corpuscular HGB Conc 33.4 % (30-36); Mean Corpuscular Hemoglobin 31.1 PG (26-34); Monocytes Absolute Auto 1300 /uL (0-900); Monocytes Percent Auto 5.3 % (3-14); Neutrophils Absolute Auto 20400 /uL (1500-7000); Neutrophils Percent Auto 84.7 % (50-75); Platelet Count 421 X10^3/uL (150-400); Prothrombin Time 15.1 SECONDS (10.1-12.7); Red Blood Cell Count 3.66 X10^6/uL (4.0-5.2); Red Cell Distribution Width 15.5 % (11.6-14.8); White Blood Cell Count 24.1 X10^3/uL (4.5-11.0)
--- NOTE | 2022-05-22 03:18 | DI.ECHO.S_ITS ---
[place] +---------+ [facility] +---------+ : : [address] : : : : [id number] : : : : Phone: [phone]+ Echocardiogram Report + + :Name: RADHA ZAYAS I Study Date: 05/22/2022 Height: 64 in : :[facility] ReadingLocation: Weight: 88 lb : : Gender: Female BSA: 1.4 m2 : :: 1940 Age: 82 yrs BP: 163/86 mmHg: :Reason For Study: Elevated Troponin : :Ordering Physician: KENNETH, : :JOSELYN Performed By: Selvin Beaulieu : :Referring: JOSELYN COOPER : + + Interpretation Summary The study quality was technically difficult. Left ventricular ejection fraction is estimated to be 55 +/- 5%. There are no obvious focal wall motion abnormalities noted but poor endocardial definition reduces the sensitivity for the detection of such. There is no significant valvular heart disease. Procedure: A two-dimensional transthoracic echocardiogram with color flow and Doppler was performed. There is no prior echocardiogram noted for this patient. The study quality was technically difficult. Left Ventricle: The left ventricle is normal in size. There is mild concentric left ventricular hypertrophy. Left ventricular systolic function is normal. Left ventricular ejection fraction is estimated to be 55 +/- 5%. There are no obvious focal wall motion abnormalities noted but poor endocardial definition reduces the sensitivity for the detection of such. Diastolic parameters suggest a relaxation abnormality of the left ventricle, consistent with probable normal filling pressures. Right Ventricle: The right ventricle is normal in size and function. Atria: Both atria are normal in size. The interatrial septum grossly appears intact with no obvious evidence for an atrial septal defect. The atrial septum is aneurysmal. Mitral Valve: The mitral valve leaflets appear mildly thickened, but open well. There is trace mitral regurgitation. Aortic Valve: There is mild aortic valve sclerosis. No aortic regurgitation is present. Tricuspid Valve: The tricuspid valve is normal in structure and function. There is trace tricuspid regurgitation. The right ventricular systolic pressure is estimated to be at least 27 mmHg based on an estimated right atrial pressure of 3 mm Hg. Pulmonic Valve: The pulmonic valve is not well visualized. Great Vessels: The aortic root is normal size. The dimensions of the ascending aorta are normal. The IVC is of normal diameter and collapses greater than 50% with a sniff. This suggests a low right atrial pressure of 3 mm Hg. Pericardium/ Pleura There is no pericardial effusion. There is no pleural effusion. MMode/2D Measurements & Calculations LVIDd: 3.4 cm LVOT diam: 2.0 cm LVIDs: 2.3 cm Ao root diam: 3.1 cm FS: 32.4 % asc Aorta Diam: 3.2 cm IVSd: 1.1 cm LVPWd: 1.1 cm LV stark. diameter/BSA (cm/m^2): 2.5 LV sys. diameter/BSA (cm/m^2): 1.7 LA dimension: 2.3 cm RA long axis: 3.6 cm LA A2 area: 8.2 cm2 LA A4 area: 10.1 cm2 LA length (vol): 3.3 cm LA vol: 21.4 ml LA vol index: 15.5 ml/m2 TAPSE_phl: 2.0 cm Doppler Measurements & Calculations Ao V2 max: 148.0 cm/sec LVOT Max Law: 77.7 cm/sec Ao V2 mean: 114.0 cm/sec LV V1 max P.4 mmHg Ao max P.0 mmHg LV V1 VTI: 12.1 cm Ao mean P.0 mmHg KVNG(I,D): 1.4 cm2 Ao V2 VTI: 27.1 cm KVNG(V,D): 1.6 cm2 sev ratio: 0.45 KVNG indexed to BSA (cm^2/m^2): 1.0 MV E max lwa: 44.6 cm/sec TR max lwa: 246.0 cm/sec MV A max law: 74.1 cm/sec TR max P.2 mmHg MV E/A: 0.60 Med Peak E' Law: 4.4 cm/sec E/E' med: 10.3 Lat Peak E' Law: 8.7 cm/sec E/E' lat: 5.1 E/e' average: 7.7 MV dec time: 0.21 sec SV(LVOT): 38.0 ml AV VR_phl: 0.53 KVNG(VTI)/BSA_phl: 1.0 MV P1/2t-pr_phl: 62.0 msec Reading Physician:02:32 PM
[2022-05-22 03:22] LABS: Alanine Aminotransferase 12 IU/L (<35); Albumin 2.7 g/dL (3.5-5.0); Albumin Globulin Ratio 1.1 (1.0-2.8); Alkaline Phosphatase 71 U/L (38-126); Aspartate Aminotransferase 24 IU/L (14-36); BUN Creatinine Ratio 33.3 (6-22); Bilirubin Total 0.2 mg/dL (0.2-1.3); Blood Urea Nitrogen 23 mg/dL (7-17); Calcium 7.5 mg/dL (8.4-10.2); Carbon Dioxide 17 mmol/L (22-32); Chloride 108 mmol/L (98-107); Estimated Glomerular Filt Rate > 60 mL/min (>60); Globulin 2.4 g/dL (1.7-4.1); Glucose 91 mg/dL (80-110); HEMOLYSIS < 15 (0-50); Magnesium 1.6 mg/dL (1.6-2.3); Sodium 133 mmol/L (137-145); Total Protein 5.1 g/dL (6.3-8.2)
[2022-05-22 03:34] LABS: Troponin I 0.055 ng/mL (0.01-0.034)
[2022-05-22 04:00] LABS: Cholesterol 99 mg/dL (140-199); HDL Cholesterol 45 mg/dL (40-60); LDL Cholesterol Calculated 26 mg/dL (<100); Triglycerides 142 mg/dL (35-150)
--- NOTE | 2022-05-22 08:58 | PM.PN.1 ---
Subjective Subjective Date Patient Seen: 05/22/22 Time Patient Seen: 16:31 Interval history: Patient says she is in no pain. Falls back asleep between answering questions. No other complaints. Exam Vital Signs (past 8 hours): - 05/22/22 01:00 05/22/22 01:30 Pulse Rate 91 H 93 H Respiratory Rate 14 13 Pulse Oximetry 99 98 Oxygen Delivery Method Room Air Narrative Exam Narrative: General: Patient is an anorexic appearing, frail, pale confused elderly female in no distress at this time. HEENT: Normocephalic, atraumatic, extraocular muscles intact, oral pharynx is clear and mucous membranes are dry.. Neck is supple and symmetric, trachea is midline, no adenopathy, no thyroid enlargement, nontender, no masses palpated. Negative for JVD Chest: Breathing no nasal flaring, retractions, tachypneic or labored. Lungs: Auscultation of all lung mcnally are clear without adventitious sounds, wheezes, rhonchi, or rales. Cardio: Tachycardic rate and rhythm without murmur, rubs, or gallops, no carotid bruit, no cardiac pulsations present. Abdomen: Soft nontender, negative for organomegaly, or masses. Bowel sounds are hypoactive in all 4 quadrants without guarding or rebound, no CVA tenderness. Musculoskeletal: Muscle strength and tone are equal, but noted wasting, no deformity, crepitus, effusions, cyanosis, clubbing or edema present. Full range of motion intact radial and pedal pulses are normal. Skin: cool dry appears dehydrated and intact without rashes, ulcerations or petechiae. Neuro: Some what Alert and orientated to name, diffuse weakness, sensation to touch intact, no gross deficits noted of cranial nerves. Psych: Patient presents in a weakened chronically ill appearance, confused with depressed affect. Objective Labs Result Diagrams: 05/22/22 02:55 05/22/22 02:55 Labs: Laboratory Results - last 24 hr 05/21/22 05/21/22 05/21/22 16:15 16:15 16:50 WBC 24.2 H RBC 3.88 L Hgb 12.0 Hct 36.5 MCV 94.0 MCH 30.9 MCHC 32.9 RDW 15.4 H Plt Count 488 H Neut % (Auto) 90.4 H Lymph % (Auto) 4.6 L [place] % (Auto) 4.9 Eos % (Auto) 0.0 L Baso % (Auto) 0.1 Neut # (Auto) 38761 H Lymph # (Auto) 1100 [place] # (Auto) 1200 H Eos # (Auto) 0 Baso # (Auto) 0 ESR PT INR Sodium 133 L Potassium 2.9 L Chloride 102 Carbon Dioxide 19 L BUN 38 H Creatinine 1.01 Estimated GFR 55 L BUN/Creatinine Ratio 37.6 H Glucose 138 H Hemoglobin A1c Calcium 8.3 L Magnesium 1.8 Total Bilirubin 0.3 AST 31 ALT 15 Alkaline Phosphatase 85 Total Creatine Kinase 141 H CK-MB (CK-2) 3.11 H CK-MB (CK-2) Rel Index 2.2 Troponin I 0.043 H C-Reactive Protein NT-Pro-B Natriuret Pep Total Protein 6.6 Albumin 3.6 Globulin 3.0 Albumin/Globulin Ratio 1.2 Triglycerides Cholesterol LDL Cholesterol, Calc HDL Cholesterol Lipase 72 Procalcitonin Urine Color Yellow Urine Appearance Slightly cloudy Urine pH 5.5 Ur Specific [place] 1.015 Urine Protein 1+ H Urine Glucose (UA) Negative Urine Ketones Negative Urine Occult Blood Trace-intact Urine Nitrate Negative Urine Bilirubin Negative Urine Urobilinogen 0.2 Ur Leukocyte Esterase 1+ H Urine RBC 0-1/hpf Urine WBC 1-5/hpf Ur Squamous Epith Cells 1-5 /hpf Urine Bacteria Occasional (0-1) Ur Culture Indicated? Specimen cultured Chlamy pneumoniae PCR Adenovirus (PCR) B. pertussis DNA (PCR) B.parapertussis DNA PCR Coronavirus OC43 (PCR) Coronavirus HKU1 (PCR) Coronavirus 229E (PCR) SARS-CoV-2 (PCR) Coronavirus NL63 (PCR) Human Metapneumovir PCR Influenza Type A (PCR) Influenza Type B (PCR) M. pneumoniae (PCR) Parainfluenza 1 (PCR) Parainfluenza 2 (PCR) Parainfluenza 3 (PCR) Parainfluenza 4 (PCR) RSV (PCR) Entero/Rhino (PCR) 05/21/22 05/21/22 05/21/22 17:00 22:05 22:05 WBC RBC Hgb Hct MCV MCH MCHC RDW Plt Count Neut % (Auto) Lymph % (Auto) [place] % (Auto) Eos % (Auto) Baso % (Auto) Neut # (Auto) Lymph # (Auto) [place] # (Auto) Eos # (Auto) Baso # (Auto) ESR 25 H PT INR Sodium Potassium Chloride Carbon Dioxide BUN Creatinine Estimated GFR BUN/Creatinine Ratio Glucose Hemoglobin A1c Calcium Magnesium Total Bilirubin AST ALT Alkaline Phosphatase Total Creatine Kinase CK-MB (CK-2) CK-MB (CK-2) Rel Index Troponin I C-Reactive Protein NT-Pro-B Natriuret Pep 2040 H Total Protein Albumin Globulin Albumin/Globulin Ratio Triglycerides Cholesterol LDL Cholesterol, Calc HDL Cholesterol Lipase Procalcitonin Urine Color Urine Appearance Urine pH Ur Specific [place] Urine Protein Urine Glucose (UA) Urine Ketones Urine Occult Blood Urine Nitrate Urine Bilirubin Urine Urobilinogen Ur Leukocyte Esterase Urine RBC Urine WBC Ur Squamous Epith Cells Urine Bacteria Ur Culture Indicated? Chlamy pneumoniae PCR Not detected Adenovirus (PCR) Not detected B. pertussis DNA (PCR) Not detected B.parapertussis DNA PCR Not detected Coronavirus OC43 (PCR) Not detected Coronavirus HKU1 (PCR) Not detected Coronavirus 229E (PCR) Not detected SARS-CoV-2 (PCR) Not detected Coronavirus NL63 (PCR) Not detected Human Metapneumovir PCR Not detected Influenza Type A (PCR) Not detected Influenza Type B (PCR) Not detected M. pneumoniae (PCR) Not detected Parainfluenza 1 (PCR) Not detected Parainfluenza 2 (PCR) Not detected Parainfluenza 3 (PCR) Not detected Parainfluenza 4 (PCR) Not detected RSV (PCR) Not detected Entero/Rhino (PCR) Not detected 05/21/22 05/21/22 05/21/22 22:05 22:05 22:05 WBC RBC Hgb Hct MCV MCH MCHC RDW Plt Count Neut % (Auto) Lymph % (Auto) [place] % (Auto) Eos % (Auto) Baso % (Auto) Neut # (Auto) Lymph # (Auto) [place] # (Auto) Eos # (Auto) Baso # (Auto) ESR PT INR Sodium Potassium Chloride Carbon Dioxide BUN Creatinine Estimated GFR BUN/Creatinine Ratio Glucose Hemoglobin A1c 5.1 Calcium Magnesium Total Bilirubin AST ALT Alkaline Phosphatase Total Creatine Kinase CK-MB (CK-2) CK-MB (CK-2) Rel Index Troponin I C-Reactive Protein 5.2 H NT-Pro-B Natriuret Pep Total Protein Albumin Globulin Albumin/Globulin Ratio Triglycerides Cholesterol LDL Cholesterol, Calc HDL Cholesterol Lipase Procalcitonin 0.25 Urine Color Urine Appearance Urine pH Ur Specific [place] Urine Protein Urine Glucose (UA) Urine Ketones Urine Occult Blood Urine Nitrate Urine Bilirubin Urine Urobilinogen Ur Leukocyte Esterase Urine RBC Urine WBC Ur Squamous Epith Cells Urine Bacteria Ur Culture Indicated? Chlamy pneumoniae PCR Adenovirus (PCR) B. pertussis DNA (PCR) B.parapertussis DNA PCR Coronavirus OC43 (PCR) Coronavirus HKU1 (PCR) Coronavirus 229E (PCR) SARS-CoV-2 (PCR) Coronavirus NL63 (PCR) Human Metapneumovir PCR Influenza Type A (PCR) Influenza Type B (PCR) M. pneumoniae (PCR) Parainfluenza 1 (PCR) Parainfluenza 2 (PCR) Parainfluenza 3 (PCR) Parainfluenza 4 (PCR) RSV (PCR) Entero/Rhino (PCR) 05/21/22 05/21/22 05/22/22 22:05 22:05 02:55 WBC RBC Hgb Hct MCV MCH MCHC RDW Plt Count Neut % (Auto) Lymph % (Auto) [place] % (Auto) Eos % (Auto) Baso % (Auto) Neut # (Auto) Lymph # (Auto) [place] # (Auto) Eos # (Auto) Baso # (Auto) ESR PT INR Sodium Potassium Chloride Carbon Dioxide BUN Creatinine Estimated GFR BUN/Creatinine Ratio Glucose Hemoglobin A1c Calcium Magnesium Total Bilirubin AST ALT Alkaline Phosphatase Total Creatine Kinase CK-MB (CK-2) CK-MB (CK-2) Rel Index Troponin I 0.054 H 0.055 H C-Reactive Protein NT-Pro-B Natriuret Pep Total Protein Albumin Globulin Albumin/Globulin Ratio Triglycerides Cholesterol LDL Cholesterol, Calc HDL Cholesterol Lipase 72 Procalcitonin Urine Color Urine Appearance Urine pH Ur Specific [place] Urine Protein Urine Glucose (UA) Urine Ketones Urine Occult Blood Urine Nitrate Urine Bilirubin Urine Urobilinogen Ur Leukocyte Esterase Urine RBC Urine WBC Ur Squamous Epith Cells Urine Bacteria Ur Culture Indicated? Chlamy pneumoniae PCR Adenovirus (PCR) B. pertussis DNA (PCR) B.parapertussis DNA PCR Coronavirus OC43 (PCR) Coronavirus HKU1 (PCR) Coronavirus 229E (PCR) SARS-CoV-2 (PCR) Coronavirus NL63 (PCR) Human Metapneumovir PCR Influenza Type A (PCR) Influenza Type B (PCR) M. pneumoniae (PCR) Parainfluenza 1 (PCR) Parainfluenza 2 (PCR) Parainfluenza 3 (PCR) Parainfluenza 4 (PCR) RSV (PCR) Entero/Rhino (PCR) 05/22/22 05/22/22 05/22/22 02:55 02:55 02:55 WBC 24.1 H RBC 3.66 L Hgb 11.4 L Hct 34.0 L MCV 93.0 MCH 31.1 MCHC 33.4 RDW 15.5 H Plt Count 421 H Neut % (Auto) 84.7 H Lymph % (Auto) 9.8 L [place] % (Auto) 5.3 Eos % (Auto) 0.0 L Baso % (Auto) 0.2 Neut # (Auto) 73698 H Lymph # (Auto) 2400 [place] # (Auto) 1300 H Eos # (Auto) 0 Baso # (Auto) 100 ESR PT 15.1 H INR 1.4 H Sodium 133 L Potassium 4.0 Chloride 108 H Carbon Dioxide 17 L BUN 23 H Creatinine 0.69 Estimated GFR > 60 BUN/Creatinine Ratio 33.3 H Glucose 91 Hemoglobin A1c Calcium 7.5 L Magnesium 1.6 Total Bilirubin 0.2 AST 24 ALT 12 Alkaline Phosphatase 71 Total Creatine Kinase CK-MB (CK-2) CK-MB (CK-2) Rel Index Troponin I C-Reactive Protein NT-Pro-B Natriuret Pep Total Protein 5.1 L Albumin 2.7 L Globulin 2.4 Albumin/Globulin Ratio 1.1 Triglycerides Cholesterol LDL Cholesterol, Calc HDL Cholesterol Lipase Procalcitonin Urine Color Urine Appearance Urine pH Ur Specific [place] Urine Protein Urine Glucose (UA) Urine Ketones Urine Occult Blood Urine Nitrate Urine Bilirubin Urine Urobilinogen Ur Leukocyte Esterase Urine RBC Urine WBC Ur Squamous Epith Cells Urine Bacteria Ur Culture Indicated? Chlamy pneumoniae PCR Adenovirus (PCR) B. pertussis DNA (PCR) B.parapertussis DNA PCR Coronavirus OC43 (PCR) Coronavirus HKU1 (PCR) Coronavirus 229E (PCR) SARS-CoV-2 (PCR) Coronavirus NL63 (PCR) Human Metapneumovir PCR Influenza Type A (PCR) Influenza Type B (PCR) M. pneumoniae (PCR) Parainfluenza 1 (PCR) Parainfluenza 2 (PCR) Parainfluenza 3 (PCR) Parainfluenza 4 (PCR) RSV (PCR) Entero/Rhino (PCR) 05/22/22 02:55 WBC RBC Hgb Hct MCV MCH MCHC RDW Plt Count Neut % (Auto) Lymph % (Auto) [place] % (Auto) Eos % (Auto) Baso % (Auto) Neut # (Auto) Lymph # (Auto) [place] # (Auto) Eos # (Auto) Baso # (Auto) ESR PT INR Sodium Potassium Chloride Carbon Dioxide BUN Creatinine Estimated GFR BUN/Creatinine Ratio Glucose Hemoglobin A1c Calcium Magnesium Total Bilirubin AST ALT Alkaline Phosphatase Total Creatine Kinase CK-MB (CK-2) CK-MB (CK-2) Rel Index Troponin I C-Reactive Protein NT-Pro-B Natriuret Pep Total Protein Albumin Globulin Albumin/Globulin Ratio Triglycerides 142 Cholesterol 99 L LDL Cholesterol, Calc 26 HDL Cholesterol 45 Lipase Procalcitonin Urine Color Urine Appearance Urine pH Ur Specific [place] Urine Protein Urine Glucose (UA) Urine Ketones Urine Occult Blood Urine Nitrate Urine Bilirubin Urine Urobilinogen Ur Leukocyte Esterase Urine RBC Urine WBC Ur Squamous Epith Cells Urine Bacteria Ur Culture Indicated? Chlamy pneumoniae PCR Adenovirus (PCR) B. pertussis DNA (PCR) B.parapertussis DNA PCR Coronavirus OC43 (PCR) Coronavirus HKU1 (PCR) Coronavirus 229E (PCR) SARS-CoV-2 (PCR) Coronavirus NL63 (PCR) Human Metapneumovir PCR Influenza Type A (PCR) Influenza Type B (PCR) M. pneumoniae (PCR) Parainfluenza 1 (PCR) Parainfluenza 2 (PCR) Parainfluenza 3 (PCR) Parainfluenza 4 (PCR) RSV (PCR) Entero/Rhino (PCR) [facility] Medical History Alzheimer's dementia Chronic low back pain Hyperlipidemia Irritable bladder intermediate accountant prescription opiate use Social History household members: family Smoking Status: Former smoker alcohol intake: current Assessment & Plan Assessment & Plan narrative: Mica Dias is an 82-year-old female?with a medical history chronic low back pain, irritable bladder, long-term opiate use, Alzheimer's dementia, lower extremity weakness, frequent falls, hyperlipidemia, and recent 30 lb weight loss/anorexia within the past 6 months decreased oral intake and failure to thrive. Family was not at bedside during admit interview patient was orientated to place and person, but appeared confused and unable to appropriately answer questions or participate in HPI, Family HX, or ROS. Patient admitted for failure to thrive, with weakness, falls, weight loss resulting in tachycardia, leukocytosis, hypokalemia rule out neoplastic syndrome after failing out-patient management. Patient will need hydration, electrolyte correction, ortho evaluation, strengthening reconditioning, nutritional evaluation, and ruling out cardiac, neoplastic, or infectious process. As well as patient and family goals of care. 1. Failure to thrive as evidence by weakness, falls, weight loss, acute, present on admission -Wt pending on admit as pt is boarding in ED. Chart review: PCP 12/20/21 wt 116Lbs, 03/13/22 wt 99lbs -patient appears malnourished and dehydrated as evidenced by tachycardia, hyponatremia, hyporkalemia, elevated troponin -chart reviews: Several documented falls, extremity weakness, wheelchair-bound -head CT demonstrated no acute intracranial processes with diffuse atrophy and moderate microvascular ischemic changes. C-spine was negative for any acute fractures noted DJD throughout the cervical spine, left knee x-ray and hip x-ray demonstrated no acute fractures. -consult: Dietary, ACTING INSTRUCTOR, PT, OT-patient may require SNF/Rehab -Ortho Consult evaluation due to frquent falls/injuries -hyponatremia: Sodium 133-NS at 100 cc/HR -hypokalemia: Potassium 2.9-60 mEq K rider 2. Myocardial injury as evidence by elevated troponin, with tachycardia, acute, present on admission -troponin 1. 0.043, 2. 0.054- will trend -possible rhabdo, demand injury -total creatinine kinase 141, CK-MB 3.11, -ordered BNP, Echo -EKG demonstrated sinus tachycardia with a rate of [address] or T-wave changes. -tachycardia metoprolol 5 mg IV Q 15 minutes x3 with a goal of a heart rate below 110 -Evaluate pt for initiation of medication management for possible HTN, Sinus tachycardia r/o Afib, NSTEMI- placed on telemed. -Monitor for Chest pain 3. Leukocytosis, acute, present on admission -r/o possible neoplastic syndrome -chest abdomen pelvis CT demonstrated wall thickening of the distal esophagus possible colitis, reflux verses neoplasm, also emphysema noted. -white count of 24.2, with a left shift neutrophils 21,800, mono 1200 -chest x-ray demonstrated patchy opacities over the apex a left lobe possible pneumonia or pleural parenchymal scarring. Ordered ESR, CRP, procalcitonin -Dr. Falcon to consult- Possible EGD -blood cultures, sputum cultures, urine culture ordered 4. Chronic low back pain with long-term opiate use, acute on chronic, present on admission -continue pregabalin, oxycodone and lidocaine patches for pain control 5. Alzheimer's dementia, acute on chronic, present on admission -continue donepezil -Monitor for behavioral disturbances/sundowning 6. Hyperlipidemia, chronic, present on admission -continue Lipitor Code status: Full- needs family clarification in am. Surrogate decision maker: Daughter's Mica Woody and Maryse Luke WALSH PCR:Negative DVT/VTE prophylaxis:Lovenox & SCD's Time Spent With Patient Critical Care time: I spent a total of [] minutes of critical care time on this patient's care today; this time is exclusive of procedural time.
[2022-05-22] MEDS: ATORVASTATIN 20 MG TABLET 10 MG PO (09:05)
[2022-05-22] MEDS: cefTRIAXone 1,000 MG in SODIUM CHLORIDE 0.9% 100 ML 200 MG IV (09:05)
[2022-05-22] MEDS: ENOXAPARIN 30 MG/0.3 ML SYRINGE SUBCUT (09:06)
[2022-05-22] MEDS: DOCUSATE 100 MG CAPSULE PO ×2 (09:06→20:12)
[2022-05-22] MEDS: ASPIRIN EC 325 MG TABLET PO (09:06)
[2022-05-22] MEDS: AZITHROMYCIN 500 MG in DEXTROSE 5% IN WATER 250 ML 250 MG IV (09:13)
[2022-05-22] MEDS: DONEPEZIL 5 MG TABLET PO (09:13)
--- NOTE | 2022-05-22 09:40 | PC.RNWOUND ---
Patient resting in bed with daughter at bedside, turns to right side with assist of primary nurse and wound nurse, attends are removed and patient is cleansed up of small amount of dark stool incontinence. There is a 2 x 1.2 x 0.1cm ulcer adjacent to the posterior sacral iliac crest consistent with a stage 3 pressure injury. This wound is a full-thickness wound, 90% slough and 10% red granular tissue, edges are well-defined and intact with some maceration noted. Daughter says patient has had this wound, I think about a month, but I'm not sure- I'll ask my sister who stays with her. this appears to be a chronic wound from the appearance of the inferior wound margin. There is no drainage noted at this time. There is also a 1x2cm area of non-blanchable redness to the left sacral iliac crest area and a 3 x 1.5cm area of non-blanchable redness to the left buttock, both consistent with Stage 1 pressure injuries. A sacral dressing is applied for protection to these vulnerable areas and to help promote autolytic debridement of the open ulcer. Patient is repositoned with a pillow and 30 degree tilt, foam heel protectors are applied to bilateral heels which are boggy. Patient tolerates cares well and without complaint.
[2022-05-22] MEDS: MORPHINE 2 MG/ML INJ IV (09:53)
--- NOTE | 2022-05-22 10:41 | OT.IPNOTE ---
Per rounds, hospitalist states hold pt from therapy as to be talking to family regarding possible comfort care.
--- NOTE | 2022-05-22 12:11 | PC.NURSE ---
Pt arrived from ED approximately 0820. She is A&Ox1-2, confused and pleasant. VSS, afebrile on RA. She complains of pain in her back, and is initially medicated with tylenol with out much effect. Per patient and daughter request PRN morphine administered. Echo completed at bedside, and she tolerated IV antibiotics well. She is able to swallow pills and drinks a full glass of applejuice, however when given oatmeal she complains of trouble swallowing. Mechanical soft diet ordered as patient without her dentures, notified of her complaints of difficulty swallowing oatmeal and ST consult ordered. Pt's daughter Nancy Woody at bedside states she would like to take patient home with her in [place]. Pt had been living with another daughter Maryse Pickering on [facility]. Pt has lost >30# in 6 months, and noted pressure sores to buttocks. medical anthropology director assessed and sacral dressing placed. Continuous monitoring. Unable to collect sputum this shift.
--- NOTE | 2022-05-22 13:24 | PT-IP ANOTE ---
per rounds: pt on hold for PT eval for today and the doctor will talk to pt and family regarding comfort measures. will f/u.
[2022-05-22] MEDS: MAGNESIUM CHLORIDE 64 MG TABLET 128 MG PO (13:36)
--- NOTE | 2022-05-22 13:49 | OT.IPNOTE ---
Spoke to Hospitalist regarding whether to see pt for eval today, hospitalist states to hold therapy eval today. To check on appropriateness of OT eval tomorrow.
--- NOTE | 2022-05-22 15:46 | SLP.IPNOTE ---
Spoke to NSG regarding possible transition to comfort care. Hospitalist to talk to family today. Will follow-up tomorrow to determine if swallow evaluation is appropriate or if pt is transitioning to comfort care.
[2022-05-22] MEDS: SODIUM CHLORIDE 0.9% 1,000 ML 100 ML IV (16:04)
--- NOTE | 2022-05-22 16:26 | PT-IP ANOTE ---
talked with hospitalist and pt continues to be on hold for today.
[2022-05-22] MEDS: OXYCODONE/ACETAMINOPHEN 5/325 TABLET 1 TAB PO ×2 (18:19→22:47)
[2022-05-22] MEDS: LIDOCAINE PATCH 1 EACH ADH..PATCH TOP (19:58)
[2022-05-22] MEDS: SENNOSIDES 8.6 MG TABLET 17.2 MG PO (20:12)
[2022-05-22] MEDS: PREGABALIN 25 MG CAPSULE PO (20:12)
[2022-05-23] VITALS (8 sets, daily range): BP systolic 131–155; BP diastolic 60–72; PULSE 92–110; RESP 14–18; TEMP 36.6–36.9; O2SAT 95–100
[2022-05-23 05:57] LABS: Add Manual Diff / Slide Review NO; Basophils Absolute Auto 0 /uL (0-100); Basophils Percent Auto 0.2 % (0-2); Eosinophils Absolute Auto 0 /uL (0-450); Eosinophils Percent Auto 0.1 % (2-4); Hematocrit 27.8 % (36-46); Hemoglobin 9.2 g/dL (12.0-16.0); Lymphocytes Absolute Auto 1800 /uL (1100-4500); Lymphocytes Percent Auto 10.6 % (25-40); Mean Corpuscular Volume 93.8 fL (80-100); Monocytes Absolute Auto 1000 /uL (0-900); Monocytes Percent Auto 5.9 % (3-14); Neutrophils Absolute Auto 14000 /uL (1500-7000); Neutrophils Percent Auto 83.2 % (50-75); Platelet Count 381 X10^3/uL (150-400); Red Blood Cell Count 2.96 X10^6/uL (4.0-5.2); White Blood Cell Count 16.8 X10^3/uL (4.5-11.0)
[2022-05-23 06:22] LABS: Alanine Aminotransferase 12 IU/L (<35); Albumin 2.5 g/dL (3.5-5.0); Albumin Globulin Ratio 0.9 (1.0-2.8); Alkaline Phosphatase 73 U/L (38-126); Aspartate Aminotransferase 26 IU/L (14-36); BUN Creatinine Ratio 19.3 (6-22); Bilirubin Total 0.3 mg/dL (0.2-1.3); Blood Urea Nitrogen 11 mg/dL (7-17); Calcium 7.4 mg/dL (8.4-10.2); Carbon Dioxide 20 mmol/L (22-32); Chloride 108 mmol/L (98-107); Estimated Glomerular Filt Rate > 60 mL/min (>60); Globulin 2.7 g/dL (1.7-4.1); Glucose 96 mg/dL (80-110); HEMOLYSIS < 15 (0-50); Magnesium 1.6 mg/dL (1.6-2.3); Potassium 3.3 mmol/L (3.4-5.1); Sodium 132 mmol/L (137-145); Total Protein 5.2 g/dL (6.3-8.2)
[2022-05-23] MEDS: OXYCODONE/ACETAMINOPHEN 5/325 TABLET 1 TAB PO ×2 (06:39→16:24)
[2022-05-23] MEDS: cefTRIAXone 1,000 MG in SODIUM CHLORIDE 0.9% 100 ML 200 MG IV (07:33)
--- NOTE | 2022-05-23 08:26 | PM.PN.1 ---
Exam Vital Signs (past 8 hours): - 05/23/22 00:36 05/23/22 04:00 05/23/22 02:00 Temperature 98.4 F 97.9 F Pulse Rate 110 H 105 H Respiratory Rate 18 18 Blood Pressure 131/72 155/60 H Pulse Oximetry 95 97 96 Oxygen Delivery Method Room Air Oxygen Flow Rate 0 0 05/23/22 06:00 Temperature Pulse Rate Respiratory Rate Blood Pressure Pulse Oximetry 98 Oxygen Delivery Method Room Air Oxygen Flow Rate Oxygen Delivery Method Room Air Oxygen Flow Rate 0 Narrative Exam Narrative: General: Patient is an anorexic appearing, frail, pale confused elderly female in no distress at this time. HEENT: Normocephalic, atraumatic, extraocular muscles intact, oral pharynx is clear and mucous membranes are dry.. Neck is supple and symmetric, trachea is midline, no adenopathy, no thyroid enlargement, nontender, no masses palpated. Negative for JVD Chest: Breathing no nasal flaring, retractions, tachypneic or labored. Lungs: Auscultation of all lung mcnally are clear without adventitious sounds, wheezes, rhonchi, or rales. Cardio: Tachycardic rate and rhythm without murmur, rubs, or gallops, no carotid bruit, no cardiac pulsations present. Abdomen: Soft nontender, negative for organomegaly, or masses. Bowel sounds are hypoactive in all 4 quadrants without guarding or rebound, no CVA tenderness. Musculoskeletal: Muscle strength and tone are equal, but noted wasting, no deformity, crepitus, effusions, cyanosis, clubbing or edema present. Full range of motion intact radial and pedal pulses are normal. Skin: cool dry appears dehydrated and intact without rashes, ulcerations or petechiae. Neuro: Some what Alert and orientated to name, diffuse weakness, sensation to touch intact, no gross deficits noted of cranial nerves. Psych: Patient presents in a weakened chronically ill appearance, confused with depressed affect. Objective Labs Result Diagrams: 05/23/22 05:49 05/23/22 05:49 Labs: Laboratory Results - last 24 hr 05/23/22 05/23/22 05:49 05:49 WBC 16.8 H RBC 2.96 L Hgb 9.2 L Hct 27.8 L MCV 93.8 MCH 31.0 MCHC 33.0 RDW 15.0 H Plt Count 381 Neut % (Auto) 83.2 H Lymph % (Auto) 10.6 L Clinch % (Auto) 5.9 Eos % (Auto) 0.1 L Baso % (Auto) 0.2 Neut # (Auto) 05774 H Lymph # (Auto) 1800 Clinch # (Auto) 1000 H Eos # (Auto) 0 Baso # (Auto) 0 Sodium 132 L Potassium 3.3 L Chloride 108 H Carbon Dioxide 20 L BUN 11 Creatinine 0.57 Estimated GFR > 60 BUN/Creatinine Ratio 19.3 Glucose 96 Calcium 7.4 L Magnesium 1.6 Total Bilirubin 0.3 AST 26 ALT 12 Alkaline Phosphatase 73 Total Protein 5.2 L Albumin 2.5 L Globulin 2.7 Albumin/Globulin Ratio 0.9 L PFSH Medical History Alzheimer's dementia Chronic low back pain Hyperlipidemia 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 Family was not at bedside during admit interview patient was orientated to place and person, but appeared confused and unable to appropriately answer questions or participate in HPI, Family HX, or ROS. Patient admitted for failure to thrive, with weakness, falls, weight loss resulting in tachycardia, leukocytosis, hypokalemia rule out neoplastic syndrome after failing out-patient management. Patient will need hydration, electrolyte correction, ortho evaluation, strengthening reconditioning, nutritional evaluation, and ruling out cardiac, neoplastic, or infectious process. As well as patient and family goals of care. # Failure to thrive as evidence by weakness, falls, weight loss, acute, present on admission -Wt pending on admit as pt is boarding in ED. Chart review: PCP 12/20/21 wt 116Lbs, 03/13/22 wt 99lbs -patient appears malnourished and dehydrated as evidenced by tachycardia, hyponatremia, hyporkalemia, elevated troponin -chart reviews: Several documented falls, extremity weakness, wheelchair-bound -head CT demonstrated no acute intracranial processes with diffuse atrophy and moderate microvascular ischemic changes. C-spine was negative for any acute fractures noted DJD throughout the cervical spine, left knee x-ray and hip x-ray demonstrated no acute fractures. -consult: Dietary, BARREL SCRAPER, PT, OT-patient may require SNF/Rehab -Ortho Consult evaluation due to frquent falls/injuries -hyponatremia: Sodium 133-NS at 100 cc/HR -hypokalemia: Potassium 2.9-60 mEq K rider # stage 3 pressure ulcer, chronic -per wound care there is a 2 x 1.2 x 0.1cm ulcer adjacent to the posterior sacral iliac crest consistent with a stage 3 pressure injury -wound care to follow # Myocardial injury as evidence by elevated troponin, with tachycardia, acute, present on admission -troponin 1. 0.043, 2. 0.054- will trend -possible rhabdo, demand injury -total creatinine kinase 141, CK-MB 3.11, -ordered BNP, Echo -EKG demonstrated sinus tachycardia with a rate of [address] or T-wave changes. -tachycardia metoprolol 5 mg IV Q 15 minutes x3 with a goal of a heart rate below 110 -Evaluate pt for initiation of medication management for possible HTN, Sinus tachycardia r/o Afib, NSTEMI- placed on telemed. -Monitor for Chest pain # Leukocytosis, acute, present on admission -r/o possible neoplastic syndrome -chest abdomen pelvis CT demonstrated wall thickening of the distal esophagus possible colitis, reflux verses neoplasm, also emphysema noted. -white count of 24.2, with a left shift neutrophils 21,800, mono 1200 -chest x-ray demonstrated patchy opacities over the apex a left lobe possible pneumonia or pleural parenchymal scarring. Ordered ESR, CRP, procalcitonin -Dr. Falcon to consult- Possible EGD -blood cultures, sputum cultures, urine culture ordered # Chronic low back pain with long-term opiate use, acute on chronic, present on admission -continue pregabalin, oxycodone and lidocaine patches for pain control # Alzheimer's dementia, acute on chronic, present on admission -continue donepezil -Monitor for behavioral disturbances/sundowning # Hyperlipidemia, chronic, present on admission -continue Lipitor Code status: Full- needs family clarification in am. Surrogate decision maker: Daughter's Mica Woody and Maryse Luke WALSH PCR:Negative DVT/VTE prophylaxis:Lovenox & SCD's Time Spent With Patient Critical Care time: I spent a total of [] minutes of critical care time on this patient's care today; this time is exclusive of procedural time.
[2022-05-23] MEDS: AZITHROMYCIN 500 MG in DEXTROSE 5% IN WATER 250 ML 150 MG IV (09:27)
[2022-05-23] MEDS: POTASSIUM CHLORIDE 20 MEQ TAB 40 MEQ PO (09:41)
[2022-05-23] MEDS: MAGNESIUM CHLORIDE 64 MG TABLET 128 MG PO (09:41)
[2022-05-23] MEDS: DONEPEZIL 5 MG TABLET PO (09:41)
[2022-05-23] MEDS: DOCUSATE 100 MG CAPSULE PO (09:42)
[2022-05-23] MEDS: ATORVASTATIN 20 MG TABLET 10 MG PO (09:42)
[2022-05-23] MEDS: ENOXAPARIN 30 MG/0.3 ML SYRINGE SUBCUT (09:43)
[2022-05-23] MEDS: ASPIRIN EC 325 MG TABLET PO (09:43)
--- NOTE | 2022-05-23 09:50 | OT.IP.EVAL ---
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 Activities of Daily Living and IADL's Pt able to all her ADL's on her own but mainly just sponges off. Pt's family assists with medications,IADl's and finances. Prior Functional Level (Other details) Pt was living with her daughter, Maryse on [facility] but her other daughter, Nancy states pt will now be living with her in [place] as she feels that her sister was not taking care of her mother well. Nancy states that she works two days however that her daughter will be at home, therefore pt will have 11/05 available assist. Information of house set-up regarding Nancy's house. Social History Household Members family Living Arrangements House Number of Floors (Floors) One Floor Number of Stairs To Enter/Railing? No steps to enter from the front. Home Environment Standard Height Toilet,Walk in Shower,Tub/Shower Home Equipment Front Wheel Walker,Hand Held Shower,Grab Bars In Shower M2 OT-IP Current Condition Start: 05/23/22 11:10 Freq: Status: Active Protocol: Document 05/23/22 09:21 [facility] (Rec: 05/23/22 11:31 [facility] [id number]) Occupational Therapy Current Condition Current Condition Evaluation Date 05/23/22 Treatment Diagnosis Failure to thrive Diagnosis Onset Date 05/21/22 M3 OT- IP Subjective and Pain Start: 05/23/22 11:10 Freq: Status: Active Protocol: Document 05/23/22 09:21 [facility] (Rec: 05/23/22 11:31 [facility] [id number]) OT- Subjective Occupational Therapy Visit Type Type Initial Evaluation Visit Start Time 09:21 Visit Stop Time 09:50 Total Visit Minutes 29 Occupational Therapy Visit Comments Patient Comments Pt needing encouragement from her daughter and OT to get out of bed. Patient/Caregiver Goals To go home. OT Pain Assessment Pain When Pain Assessed At Rest Pain Present Pain Present Denied Pain M4 OT- IP ADL's Start: 05/23/22 11:10 Freq: Status: Active Protocol: Document 05/23/22 09:21 [facility] (Rec: 05/23/22 11:31 [facility] [id number]) OT [id number]-Nlbx-[id number] Comments OT Self-Feeding Comments NOt at meal time. Pt's daughter states pt has full dentures but does not wear them. Suggested to make sure that they fit properly as it may also be a reason for pt not eating well. Encouraged softer food especially if not having her denture in. OT ADL-Grooming General Evaluation Areas Needing Assistance Retrieving/Set-up of Grooming Items Comments OT Grooming Comments Pt able to wash her face after set-up of wash cloth. OT ADL-Oral Care Comments Oral Care Comments NOt performed, pt refused. OT ADL-Dressing General Eval Lower Body Dressing Ability Standby Assistance Comments OT Dressing Comments Pt able to long/doff her socks while seated o nthe edge of the bed. OT ADL-Toileting Comments OT Toileting Comments Nursing aid just changed pt's brief as it was wet. Suggested a BSC may be helpful to get for the pt, an equipment list was given to the pt's daughter. OT ADL-Bathing Comments OT Bathing Comments Not performed, pt's daughter states just mainly sponges off but she plans on getting a shower chair for the pt. M5 OT- IP IADL's Start: 05/23/22 11:10 Freq: Status: Active Protocol: Document 05/23/22 09:21 [facility] (Rec: 05/23/22 11:31 [facility] [id number]) OT-Instrumental Activities of Daily Living Home Safety Awareness Home Safety Comments Pt will need supervision and assist at all times. Medication Management Medication Management Caregiver Administers Money Management Money Management Caregiver Provides Assistance Meal Preparation Meal Preparation Caregiver Provides Assist Hemodialysis Patient Care Specialist Hemodialysis Patient Care Specialist Caregiver Provides Assist Driving Driving Caregiver Provides Assist M6 OT- IP Functional Cognition Start: 05/23/22 11:10 Freq: Status: Active Protocol: Document 05/23/22 09:21 [facility] (Rec: 05/23/22 11:31 [facility] [id number]) Cognitive Factors Limiting Selfcare Function Cognitive Ability Level of Alertness Alert Patient Orientation Name Attention Span Ability Capable of Focused Attention, Capable of Sustained Attention Ability to Follow Commands Able to Follow One Step Commands Cognitive Comments Cognitive Assessment Comments Pt able to follow commands for mobility and ADl needs. Pt needing initial encouragement to participate. OT- Vision and Hearing OT- Vision Assessment Visual Acuity Glasses For Reading M7 OT- IP Mobility and Balance Start: 05/23/22 11:10 Freq: Status: Active Protocol: Document 05/23/22 09:21 [facility] (Rec: 05/23/22 11:31 [facility] [id number]) OT- Bed Mobility Assessment Supine to Sit Supine to Sit Assist Standby Assistance Sit to Supine Sit to Supine Assist Standby Assistance OT-Transfer Assessment Sit to and From Stand Sit to and from Stand Standby Assistance Transfers Transfer Ability Standby Assistance,Contact Guard Assistance Technique Transfer Destination Bed,Bedside Commode Transfer Technique Stand Step Pivot Devices Transfer Assistive Devices None,Gait Belt,Front Wheeled Walker Comments Mobility Comments SBA to get in and out of the bed. SBA to stand to FWW and able to get to the BSC, on the way back initially CGA and then able to take a few step back to the bed. Pt not wanting to do anymore as too cold and tired. OT- Balance Assessment Sitting Balance and Reactions Static Sitting Balance Ability Good Dynamic Sitting Balance Ability Fair Standing Balance and Reactions Static Standing Balance Ability Fair Comments Other Balance Tests/Deviations/Treatment Pt tends to sit into posterior : tilt while seated on the edge of the bed. M8 OT- IP Objective Assessments Start: 05/23/22 11:10 Freq: Status: Active Protocol: Document 05/23/22 09:21 [facility] (Rec: 05/23/22 11:31 [facility] [id number]) OT Gross Range of Motion Upper Extremity Range of Motion ROM Impairments grossly WFL for age and lifestyle OT Strength Comments Strength Comments NOt formally assessed at least 3+/5 per pt's assist for mobility and ADL needs. OT-Muscle Tone Assessment Muscle Tone WNL Yes M9 OT- IP Assessment and Plan Start: 05/23/22 11:10 Freq: Status: Active Protocol: Document 05/23/22 09:21 [facility] (Rec: 05/23/22 11:31 [facility] [id number]) OT Summary Assessment and Plan Potential Rehabilitation Potential Good Analytic Complexity at Evaluation Moderate Summary OT Impairments Balance,Functional Mobility, Grooming,Dressing,Toileting, Bathing,Toilet Transfers, Shower Transfers,Activity Tolerance Progress Towards Goals Slow Progress due to Medical Issues,Slow Progress due to Activity Tolerance Assessment Summary Pt MOD complexity and main barrier is decreased activity tolerance but able to get in and out of the bed and on and off the BSC with encouragement from her daughter with CGA/ SBA with FWW and without. Pt looking to go home with her daughter 24 assist and would also benefit from shower chair and BSC at home. Goals Self-Feeding Goal Independent Grooming Goal Independent Dressing Goal Independent Toileting Goal Independent Bathing Goal Independent Toilet Transfer Goal Independent Shower Transfer Goal Independent Days to Meet Goals 7 Frequency of Treatment Frequency Of Treatment Once a Day Treatment Plan OT Treatment Plan ADL Training,Functional Mobility,Patient/Family Education,Discharge Planning Other Treatment Recommendations and Next shower if still here Treatment Focus Discharge Recommendations OT Discharge Recommendations Home with 11/05 Assist Available,Home Health Home Equipment Needs BSC, shower chair, Transportation Needs at Discharge Private Vehicle
--- NOTE | 2022-05-23 10:10 | PT.IIE ---
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 Activities of Daily Living and IADL's Per OT note: Pt able to all her ADL's on her own but mainly just sponges off. Pt's assist with medications,IADl's and finances. Social History Household Members family Living Arrangements House Number of Floors (Floors) One Floor Number of Stairs To Enter/Railing? 1 step to enter Home Environment Standard Height Toilet,Walk in Shower,Tub/Shower Home Equipment Front Wheel Walker,Hand Held Shower,Grab Bars In Shower Additional Social History Comment daughter stated that pt lives with her sister but plan at this time is for pt to go to her house and will have 24/7 assist between her and her daughter. above home set up is regarding daughter's house where pt plans to d/c M2 PT-IP Current Condition Start: 05/23/22 12:00 Freq: NEEDED Status: Active Protocol: Document 05/23/22 10:10 [facility] (Rec: 05/23/22 12:46 AB [id number]) Physical Therapy Current Condition Current Condition Evaluation Date 05/23/22 Treatment Diagnosis failure to thrive; alzheimer's dementia; difficulty walkiing Onset Date 05/21/22 M3 PT-IP Subjective Start: 05/23/22 12:00 Freq: NEEDED Status: Active Protocol: Document 05/23/22 10:10 AB (Rec: 05/23/22 12:46 AB [email or web address]) Subjective Physical Therapy Visit Type Type Initial Evaluation Visit Start Time 10:10 Visit Stop Time 10:40 Total Visit Minutes 30 Number of CHANNEL SALES MANAGER Visits 0 Physical Therapy Visit Comments Patient Comments c/o nausea and needs motivation to participate M4 PT-IP Mobility and Gait Start: 05/23/22 12:00 Freq: NEEDED Status: Active Protocol: Document 05/23/22 10:10 AB (Rec: 05/23/22 12:46 AB [id number]) PT-Bed Mobility Assessment Supine to Sit Supine to Sit Minimal Assistance,Head of Bed Elevated PT-Transfer Assessment Sit to and From Stand Sit to and from Stand Minimal Assistance,1 Person Assistance,Use of Upper Extremities Equipment Transfer Assistive Device Gait Belt,Front Wheeled Walker Orthotic/Prosthetic Devices or Brace: No Transfers Transfer Destination Chair Transfer Technique ambulated Transfer Ability Level of Assist Minimal Assistance,Moderate Assistance,1 Person Assistance ,Use of Upper Extremities Comments Mobility Comments daughter in room with pt. pt requiring motivation to participate. c/o nausea. BP: 124/76 supine. completed supine to sit min A and max cues. able to sit on EOB CGA. BP in sittin/68. completed sit to stand min and ambulated using FWW ~ 12ft min to mod A and cues. positioned pt on the chair. call light and table placed within reach. left pt with daughter in room. Gait Assessment Gait Gait Assistance Required: Minimum Assistance,Moderate Assistance,1 Person Assist Distance (Feet) 12 Able to Maintain Weight Bearing Status Yes During Gait Assistive Devices Assistive Device Gait Belt,Front Wheeled Walker Orthotic/Prosthetic Devices or Brace: No Gait Deviations General Gait Pattern Decreased Stride Length, Decreased Feet Clearance, Flexed Trunk,Step-to Gait Factors Limiting Gait Function Factors Limiting Gait Function Decreased Activity Tolerance, Decreased Strength,Difficulty Following Directions,Limited Range of Motion,Pain,Poor Balance,Poor Safety Awareness PT-Balance Assessment Sitting Balance and Reactions Static Sitting Balance Ability Good Dynamic Sitting Balance Ability Fair Standing Balance and Reactions Static Standing Balance Ability Poor Dynamic Standing Balance Ability Poor Device Used FWW M5 PT-IP Objective Assessments Start: 05/23/22 12:00 Freq: NEEDED Status: Active Protocol: Document 05/23/22 10:10 AB (Rec: 05/23/22 12:46 AB [id number]) Orientation Orientation/Cognition Level of Alertness Confusional State Orientation Name,Place Safety Awareness Decreased Safety Awareness Memory Description Short Term Impaired Gross Range of Motion Lower Extremity ROM Assessment Within Functional Limits Strength Comments Strength Comments pt unable to follow to correctly conduct MMT Muscle Tone Muscle Tone WNL Yes M6 PT-IP Treatment Start: 05/23/22 12:00 Freq: NEEDED Status: Active Protocol: Document 05/23/22 10:10 AB (Rec: 05/23/22 12:46 AB [id number]) Physical Therapy Treatment Education Education Provided Safety M7 PT-IP Assessment and Plan Start: 05/23/22 12:00 Freq: NEEDED Status: Active Protocol: Document 05/23/22 10:10 AB (Rec: 05/23/22 12:46 AB [id number]) PT Summary Assessment and Plan Potential Rehabilitation Potential Fair Status of Condition at Evaluation Evolving Summary Impairments Pain,ROM,Strength,Balance, Coordination,Sensation,Tone, Cognition,Bed Mobility, Transfers,Gait,Activity Tolerance Assessment Summary pt requiring min to mod A with mobility using FWW. needs motivation to participate. daughter plans to take pt home with her and will be able to provide 24/7 assist to pt. will conduct caregiver training and stair climbing training when appropriate. will assess progress. Goals Bed Mobility Goal Standby Assistance Transfer Goal Standby Assistance,Front Wheeled Walker Gait Goal Standby Assistance,Front Wheel Walker Gait Distance 150 Other Goals improve ambulation without AD ~ 100 ft SBA up/down 1 step using FWW/ without SBA Days to Meet Goals 10 Frequency of Treatment Frequency Of Treatment Once a Day Treatment Plan Physical Therapy Treatment Plan Bed Mobility Training,Transfer Training,Gait Training, Therapeutic Exercise,Balance Retraining,Post Op Education, Discharge Planning,Hot or Cold Pack,Neuromuscular Re-ed, Coordination Retraining,Manual Therapy Precautions Other Precautions falls Recommendations To Nursing Amount of Assist Needed 1 Person Assist Discharge Recommendations PT Discharge Recommendations Home with 24/7 Assist Available,Home Health Transportation Needs at Discharge Private Vehicle
--- NOTE | 2022-05-23 11:26 | SLP.IPNOTE ---
Per conversation with hospitalist at 9:35, hold swallow evaluation at this time. Hospitalist to have conversation with family regarding comfort care. Will follow-up in PM.
[2022-05-23] MEDS: VANCOMYCIN 1,000 MG/200 ML PIGGYBACK 200 MG IV (11:34)
--- NOTE | 2022-05-23 12:15 | PM.DS.1 ---
History of Present Illness History of Present Illness Date Patient Seen: 05/23/22 Time Patient Seen: 15:00 Chief complaint: Not eating, fatigued, fall Narrative: Mica Dias is an 82-year-old female?with a medical history chronic low back pain, irritable bladder,? long-term opiate use, Alzheimer's dementia, lower extremity weakness, frequent falls, hyperlipidemia, and recent 30 lb weight loss/anorexia within the past 6 months decreased oral intake and failure to thrive.? Patient was seen by a new primary care provider today, in which the family advised that the patient had multiple unwitnessed falls recently and had not eaten in 2 days the primary care doc found the patient is severely dehydrated and recommended that the patient be air flighted from [facility].? In the ED Dr. Shields reported that the patient was cooperative, but only shook her head yes and no to questions.?Patient lives with daughter.? Daughter at bedside denied nausea vomiting diarrhea, black or bloody stools, but noted decreased urine output.? Family was not at bedside during admit interview patient was orientated to place and person, but appeared confused and unable to appropriately answer questions or participate in HPI, Family HX, or ROS appropriately due to Alzheimer's dementia.? When asked her age, she stated clearly she was 22 yrs old.? The patient was complaining rectal pain, and requesting something to drink.? Patient appears frail, pale, anorexic, but in no acute distress at this time. At the time of admit patient was afebrile with a temp of 98.3? BP was 149/83 patient was tachycardic heart rate ranging 120 is to 140s, respiratory rate of 12, O2 saturation 98% on room air.? Patient had a white count of 24.2, with a left shift neutrophils 21,800, mono 1200, platelets 488, RBCs 3.88, mild hyponatremia sodium 133, hypokalemia potassium 2.9, bicarb 19, BUN of 38, glucose of 138, GFR 55, total creatinine kinase 141, CK-MB 3.11, troponin 0.043, patient's chest x-ray demonstrated patchy opacities over the apex a left lobe possible pneumonia or pleural parenchymal scarring.? Urinalysis was cultured, calcium of 8.3, chest abdomen pelvis CT demonstrated wall thickening of the distal esophagus possible colitis, reflux verses neoplasm, also emphysema noted.? Patient's EKG demonstrated sinus tachycardia with a rate of [address] or T-wave changes.? Patient's head CT demonstrated no acute intracranial processes with diffuse atrophy and moderate microvascular ischemic changes.? C-spine was negative for any acute fractures noted DJD throughout the cervical spine, left knee x-ray and hip x-ray demonstrated no acute fractures.? Patient admitted for failure to thrive, with weakness, falls, weight loss resulting in tachycardia, leukocytosis, hypokalemia rule out neoplastic syndrome Discharge Providers Provider Date of admission: 05/21/22 21:44 Discharge Date: 05/23/22 Primary care physician: Americo Crespo MD Consults: 05/21/22 20:45 Consult to Dietitian, Adult Routine Comment: Reason For Exam: 30lb wt loss, not eating 05/21/22 20:46 Consult to Occupational Therapy Evaluate & Treat Comment: Frequent Falls Physician Instructions: Evaluate and treat Consult to Physical Therapy Evaluate & Treat Comment: Frequent Falls Physician Instructions: Evaluate and Treat Consult to Physician Routine Comment: Consulting Provider: Stanton Falcon Reason for consultation: Poss Neoplastic esophageal Has provider been notified: Yes 05/21/22 20:49 Consult to VENEER JOINTER HELPER - Senior Accounting Clerk Stat Comment: Failure to thrive-Goals of care VENEER JOINTER HELPER Consult needed for:: End of Life/Goal Care Dis Consult to Orthopedic Surgery Stat Comment: Consulting Provider: Chanel Mendosa Reason for consultation: Frequent falls Has provider been notified: No 05/22/22 10:51 Consult to Dietitian, Adult Routine Comment: Reason For Exam: significant weightloss, low jake 05/22/22 10:53 Consult to Inpatient Wound Care Nurse Routine Comment: Reason for consultation: coccyx 05/22/22 11:40 Consult to Speech Therapy Evaluate & Treat Comment: Physician Instructions: Evaluate and treat Discharge provider: Geovani Mares DO Summary Hospital Course Discharge Diagnosis: # Failure to thrive as evidence by weakness, falls, weight loss, acute, present on admission # severe protein calorie malnutrition -agree with muskrat trapper assessment noting recent significant weight loss # stage 3 pressure ulcer, chronic -per wound care there is a 2 x 1.2 x 0.1cm ulcer adjacent to the posterior sacral iliac crest consistent with a stage 3 pressure injury -wound care to follow # Myocardial injury as evidence by elevated troponin, with tachycardia, acute, present on admission -troponin 1.? 0.043, 2.? 0.054 # Leukocytosis, acute, present on admission -thought due to PNA vs UTI # Chronic low back pain with long-term opiate use, acute on chronic, present on admission -continue pregabalin, oxycodone and lidocaine patches for pain control # Alzheimer's dementia, acute on chronic, present on admission -continue donepezil -Monitor for behavioral disturbances/sundowning # Hyperlipidemia, chronic, present on admission -continue Lipitor Hospital Course: Admitted for weakness, failure to thrive and possible PNA and UTI. Received abx. Diagnosed with severe protein calorie malnutrition by muskrat trapper. After discussion with family they elected for hospice and a POLST was filled out indicating comfort measures only. She was discharge home to her daughters home with hospice referral placed. Exam Vital Signs (past 8 hours): Oxygen Delivery Method Room Air Oxygen Flow Rate 0 Narrative Exam Narrative: General: Patient is an anorexic appearing, frail, pale confused elderly female in no distress at this time. HEENT: Normocephalic, atraumatic, extraocular muscles intact, oral pharynx is clear and mucous membranes are dry.. Neck is supple and symmetric, trachea is midline, no adenopathy, no thyroid enlargement, nontender, no masses palpated. Negative for JVD Chest: Breathing no nasal flaring, retractions, tachypneic or labored. Lungs: Auscultation of all lung mcnally are clear without adventitious sounds, wheezes, rhonchi, or rales. Cardio: Tachycardic rate and rhythm without murmur, rubs, or gallops, no carotid bruit, no cardiac pulsations present. Abdomen: Soft nontender, negative for organomegaly, or masses. Bowel sounds are hypoactive in all 4 quadrants without guarding or rebound, no CVA tenderness. Musculoskeletal: Muscle strength and tone are equal, but noted wasting, no deformity, crepitus, effusions, cyanosis, clubbing or edema present. Full range of motion intact radial and pedal pulses are normal. Skin: cool dry appears dehydrated and intact without rashes, ulcerations or petechiae. Neuro: Somnolent but wakes up and orientated to name, diffuse weakness noted, sensation to touch intact, no gross deficits noted of cranial nerves. Psych: Patient presents in a weakened chronically ill appearance, confused with depressed affect. Objective Labs Result Diagrams: 05/23/22 05:49 05/23/22 05:49 [facility] Medical History Alzheimer's dementia Chronic low back pain Hyperlipidemia Irritable bladder tank terminal gauger prescription opiate use Social History household members: family Smoking Status: Former smoker alcohol intake: current Discharge Plan Discharge Plan Patient Disposition: Hospice - Home Provider Discharge Comment: We have referred patient to Hospice who will provide comfort based care for her at home to prevent needing to come back to the hospital again. I [facility] her [facility] to last her until hospice picks up care in a few days and they will handle her medications after that. Discharge orders & Medications Prescriptions: New lidocaine 5 % Adhesive Patch,Medicated 1 patch topical Q24H Qty: 15 0RF Rx Instructions: Apply to most painful area and remove after 24 hours. oxycodone-acetaminophen 10-325 mg tablet 1 tab PO Q4HR PRN (Reason: Pain, Moderate (4-6)) Qty: 60 0RF lorazepam 0.5 mg Tablet 0.5 mg PO Q4HR PRN (Reason: anxiety) Qty: 30 0RF pregabalin [Lyrica] 25 mg Capsule 25 mg PO BEDTIME Qty: 30 0RF Continued donepezil [Aricept] 5 mg tablet 5 mg PO DAILY Qty: 30 3RF lidocaine 5 % adhesive patch,medicated See Rx Instructions .ROUTE .COMPLEX Qty: 15 3RF Dose Instruction: APPLY 1 PATCH TOPICALLY TO MOST PAINFUL AREA AT BEDTIME; LEAVE ON FOR UP TO 12 HOURS THEN OFF FOR 12 HOURS Rx Instructions: APPLY 1 PATCH TOPICALLY TO MOST PAINFUL AREA AT BEDTIME; LEAVE ON FOR UP TO 12 HOURS THEN OFF FOR 12 HOURS pregabalin [Lyrica] 25 mg capsule 25 mg PO BEDTIME Qty: 30 0RF Rx Instructions: Take one at bedtime for pain. Must last 28 days. Release date 04/10/22 Changed oxycodone-acetaminophen 10-325 mg tablet See Rx Instructions .ROUTE .COMPLEX Qty: 30 0RF Dose Instruction: TAKE ONE TABLET BY MOUTH EVERY 6 HOURS NEEDED FOR PAIN --28 DAY SUPPLY-- Rx Instructions: TAKE ONE TABLET BY MOUTH EVERY 6 HOURS NEEDED FOR PAIN Discontinued oxybutynin chloride 5 mg tablet extended release 24 hr See Rx Instructions .ROUTE .COMPLEX Qty: 90 0RF Dose Instruction: TAKE 1 TABLET EVERY DAY Rx Instructions: TAKE 1 TABLET EVERY DAY atorvastatin 10 mg tablet See Rx Instructions .ROUTE .COMPLEX Qty: 30 0RF Dose Instruction: TAKE 1 TABLET EVERY DAY Rx Instructions: TAKE 1 TABLET EVERY DAY naloxone 4 mg/actuation spray,non-aerosol 1 spray intranasal Q2M Qty: 2 1RF Rx Instructions: spray 1 dose into ONE nostril; alternate nostrils w each dose until help arrives Follow up/Referrals: Americo Crespo MD [Primary Care Provider] - Diet/Activity/Treatments Diet comment: Dysphagia [facility] soft diet Visit Report/Discharge Packet Instructions: End of Life Care, [id number], DI for Failure to Thrive Discharge Data Primary Care Provider: Americo Crespo
--- NOTE | 2022-05-23 13:47 | ST.IPIE ---
Visit Care Team Role Provider Type Americo Crespo MD Primary Care Provider Physician Specialty: Family Practice Address: [address] [place] [address], [address] Email: [email or web address] Chanel Mendosa MD Other Providers Physician Specialty: Orthopedics Orthopedic Surgery Address: [address] [place] [address], [address] Email: @[email or web address] Stanton Falcon MD Other Providers Physician Specialty: General Surgery Address: [address] [place] [address], [id number] Email: [email or web address] Ney Gibbs DO Emergency Provider Physician Referring Provider Specialty: Emergency Medicine Address: [address] [place] [address], [id number] Email: [email or web address] Annika Gomes [facility] Admit Provider Physician Attending Provider Specialty: Hospitalist Internal Medicine Address: [address] [place] [address], [address] Email: Past Medical History (Last Reviewed 05/22/22 @ 16:40 by Geovani Mares DO) Alzheimer's dementia (Medical) Chronic low back pain (Medical) Hyperlipidemia (Medical) Irritable bladder (Medical) buttermaker prescription opiate use (Medical) ST IP 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 Start: 05/23/22 13:12 Freq: Status: Active Protocol: Document 05/23/22 13:13 LNK (Rec: 05/23/22 13:47 LNK [id number]) Clinical Swallow Evaluation Session Time Visit Start Time 12:30 Visit Stop Time 12:55 Total Visit Minutes 25 Setting Assessment Location Outpatient Care Visit Type Note Type Initial evaluation Next Note Type Next Note Type Treatment Note Patient Information Identification Type Name,Wristband History PER PT CHART REVIEW: Mica Dias is an 82-year- old female?with a medical history chronic low back pain, irritable bladder, long-term opiate use, Alzheimer's dementia, lower extremity weakness, frequent falls, hyperlipidemia, and recent 30 lb weight loss/anorexia within the past 6 months decreased oral intake and failure to thrive. Family was not at bedside during admit interview patient was orientated to place and person, but appeared confused and unable to appropriately answer questions or participate in HPI, Family HX, or ROS. Patient admitted for failure to thrive, with weakness, falls, weight loss resulting in tachycardia, leukocytosis, hypokalemia rule out neoplastic syndrome after failing out-patient management. Patient will need hydration, electrolyte correction, ortho evaluation, strengthening reconditioning, nutritional evaluation, and ruling out cardiac, neoplastic , or infectious process. As well as patient and family goals of care. Subjective Observations Pt was alert and sitting in bedside chair talking to her daughter. Reported by Patient Other Symptoms Weight loss Current Diet Regular,Thin liquids Objective Assessment Mental Status Alert,Responsive,Cooperative Oral Integrity WFL Dentition Missing teeth,Poor denture or partial fitting Lip Function Within normal limits Tongue Function Within normal limits Jaw Function Within normal limits Phonation Within normal limits Food and Liquid Trials Position During Assessment Upright (90 degrees) Liquids Trialed Thin Solids Trialed Dysphagia Advanced,Mechanical Soft Administration Type Tea spoon,Self-feeding Oral Impairment Within functional limits Oral Phase Comments Pt was edentulous for evaluation. Daughter reported that the pt's dentures are poorly fitted due to weight loss and he hasn't worn them lately. Otherwise oral motor status is WNL. Trial PO with dysphagia mechanical texture was safely tolerated with pt self-feeding. Pt remarked This tastes good. Pharyngeal Phase Comments Pharyngeal phase of swallowing was observed to be WFL. Pt did not demonstrate cough, choke, wet voicing. No audible swallow noted. Pt safely tolerated thin liquids without s/sx aspiration. Fatigue/Endurance Endurance WNL Findings Swallowing Function Within functional limits Swallowing Function Comments Pt's daughter indicated that the pt will be getting her dentures Severity of Swallow Impairment Within functional limits Contributing Factors to Swallow Mastication inefficiency Impairment Comments edentulous status Prognosis Good Based on Family support Impact on Safety and Functioning Risk for inadequate nutrition/ hydration Recommendations Instrumental Assessment No Swallowing Treatment No Recommended Solids Dysphagia Mechanical Recommended Liquids Thin Safety Precautions/Swallowing Reduce distractions,Remain Recommendations upright (90 degrees) during all oral intake,Set-up assistance,Check for pocketing Medication Recommendations As Tolerated Discharge Recommendations Home Comments Home with daughter Education Patient/Caregiver Education Described results of evaluation,Patient expressed understanding of evaluation, Family/caregivers expressed understanding of evaluation, Family/caregivers expressed agreement with goals & treatment plans,Patient expressed understanding of safety precautions,Family/ caregivers expressed understanding of safety precautions
--- NOTE | 2022-05-23 14:12 | DIET.CONS ---
Dietary Consultation Note Admission Date: 05/21/2022 21:44 Assessment: 82 y/o F with PMH of Alzheimer's dementia, LE weakness, frequent falls, and recent weight loss. Daughter Nancy at bedside today. She states this weight loss is due to her sister (whom Bekah lives with) not being more attentive to Bekah's eating. Reports she has been eating very small portions 2 bites since February when her sister's household, including Bekah, got covid. Reports significant loss of appetite since for her mother. Plans for Bekah to move in with Nancy per report. Nancy reports Bekah does not drink ONS easily. May trial blended shake. Also prefers jello. Bekah wears dentures. 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 wt hx per EMR: (quite variable weights upon admission) 05/21/22: 40kg 03/13/22: 44.96kg 11/20/21: 53.127 11% wt loss in the last 3 months (severe) 25% wt loss in the last 6 months (severe) Ht: 160 cm Wt: 45 kg BMI: 25.2 UBW: 52-53kg per EMR Last BM: 05/23/22 (05/23/22 03:44) MNA: Hugo Score: 12 Diet: 05/21/22 Breakfast General (Regular) Diet Diet Modifications: mechanical soft (no teeth) Nutrition Percent Meal Consumed 50% 05/23/22 10:00 Percent Meal Consumed 1 bite, oatmeal 05/22/22 12:00 Labs: RBC 2.96 X10^6/uL (4.0-5.2) L 05/23/22 05:49 Hgb 9.2 g/dL (12.0-16.0) L 05/23/22 05:49 Hct 27.8 % (36-46) L 05/23/22 05:49 Creatinine 0.57 mg/dL (0.52-1.04) 05/23/22 05:49 Hemoglobin A1c 5.1 % (4.0-6.0) 05/21/22 22:05 NT-Pro-B Natriuret Pep 2040 pg/mL (<450) H 05/21/22 22:05 Nutrition Diagnosis: Chronic protein calorie malnutrition r/t loss of appetite possibly r/t covid dx in February, dementia diagnosis and increased nutrient needs with wound aeb >10% wt loss in 6 months, <75% EER for over one month, FTT diagnosis, physical signs of wasting muscle and fat loss, and sacral ulcer Interventions: 1. Aydin BID to support wound healing 2. Trial of protein shake BID 3. Jello on each tray EER: 1350kcals (30kcal/kg per BMI) ; 68g (per malnutrition and wound) Monitoring/Evaluations: shake and aydin tolerance, wound healing, PO, weight Electronically Signed by: Martha Tijerina 05/23/22 14:12 Clinical Dietitian [address] [address]
--- NOTE | 2022-05-23 14:21 | CM.DANOTE ---
Addendum entered by CINDY Bai 05/23/22 15:12: ADD: Update from Dr Mares- he and dtr have discussed home health vs Hospice and Dtr requests referral [facility] Faxed now and brochure given. POLST updated by Dr Mares, copy taken to be scanned into chart, original to Dtr Nancy. Plan: DC home w/family this afternoon, [facility] referral made and expected to follow up at dtr Nancy's house. Dtr Maryse ([facility]) aware and agreeable to plan Original Note: Initial DCP Assessment Note Pt is an 82 yo female, resident of [facility], presents to the ED after fall at home, family complaints are decreased intake, fatigue and overall failure to thrive Patient lives w/dtr Maryse on [facility]. According to dtr Nancy, Maryse's health issue have increased and Maryse is becoming less capable of caring for patient so Nancy planning to move patient in with her. Patient has Alz Dementia and requires much cueing to participate in ADLs, not currently using any AD, does require assist w/ IADLs. Patient prefers a sedentary lifestyle per dtr PCP: Americo Crespo Payer: [employer] Reviewed chart, therapy clearing patient for return home w/ family and HH services Placed call to dtr Nancy and alerted her that patient is slated to be discharged today; Dtr Nancy expresses relief and states she was hoping to take her mom home this afternoon, requests information about HH services Planning to meet with dtr at bedside now and hopeful to have referral to HH services done promptly thereafter CINDY King Discharge Planning/Care Management CM Discharge Assessment Start: 05/23/22 14:07 Freq: Status: Active Protocol: Document 05/23/22 14:07 ANYA (Rec: 05/23/22 14:20 ANYA [id number]) Discharge Planning Assessment Assigned Shirt Maker CINDY Joyner DPOA/Assigned Designee Name Mica Woody dtr ( [place]) Contact Information [phone] Advance Directives? No Advance Directives on File No History Provided By Patient,Family Member,Medical Record Prior Living Arrangements House Household Members family Type of transporation used prior to Relies on Others admit Independent with ADL's No: Prefers to remain in bed for most of the day. Needs assist w/ IADLs Is patient alert and oriented? No: Alz Dementia Needs Assistance With Bathing,Grooming,Meal Prep, Managing Medications,Home Chores / Shopping Patient/Family Preference Home with Home Health Barriers to Discharge No Comment Anticipate home w/ dtr Nancy later this afternoon Discharge Plan Home with Home Health Transportation Arrangement Family Referrals Initiated Home Health Additional Comment Will plan to review MCR Choice list w/patient's dtr Nancy
--- NOTE | 2022-05-23 16:36 | PC.NURSE ---
Day shift: Paperwork signed and all questions answered. MD scripts sent electronic to Pt's pharmacy. Pts Daughter in room for support. Pt has all personal belongings. Left unit via WC at approx [phone] via . Taken to Daughters car by PELON Au (via ).
== END 2022-05-23 16:38 | disposition hospice, home (50) | DRG 640 ==
LOC: ED 20:19 → AC 21:46
PROVIDERS: Emergency Medicine; Admitting Provider Nurse Practitioner Family; Emergency Provider Emergency Medicine; PCP Family Medicine; Referring Provider Emergency Medicine; Visit Provider Nurse Practitioner Family
DX: R62.7 Adult failure to thrive (principal); L89.153 Pressure ulcer of sacral region, stage 3; J18.9 Pneumonia, unspecified organism; E43 Unspecified severe protein-calorie malnutrition; Z68.1 Body mass index [BMI] 19.9 or less, adult; E87.1 Hypo-osmolality and hyponatremia; I5A Non-ischemic myocardial injury (non-traumatic); N39.0 Urinary tract infection, site not specified; G30.9 Alzheimer's disease, unspecified; F02.80 Dementia in other diseases classified elsewhere, unspecified severity, without behavioral disturbance, psychotic disturbance, mood disturbance, and anxiety; E78.5 Hyperlipidemia, unspecified; G89.29 Other chronic pain; E86.0 Dehydration; E87.6 Hypokalemia; Z91.81 History of falling; Z20.822 Contact with and (suspected) exposure to COVID-19; Z87.891 Personal history of nicotine dependence; D72.829 Elevated white blood cell count, unspecified; M54.50 Low back pain, unspecified
CPT/HCPCS: 36415; 70450; 71045; 71260; 72125; 73502; 73560; 74177; 80053; 80061; 81001; 82550; 82553; 83036; 83690; 83735; 83880; 84145; 84484; 85025; 85610; 85651; 86140; 87040; 87077; 87086; 87186; 87633; 92610; 93005; 93306; 96361; 96365; 96366; 97162; 97166; 99285; J0696; J1650; J2270; Q9967